=== PATIENT | female | born 1950 | race Caucasian/White ===

== ENCOUNTER → 2017-01-02 | Day surgery (SDC) | payer BC ==
[2016-12-26 09:03] VITALS: Ht 180.3 cm; Wt 102.3 kg
[~2017-01-02] VITALS: Ht 180.3 cm; Wt 102.3 kg
[~2017-01-02] MED LIST: LEVO100T7 PO; LIDOCAINE HCL 2% 2 ML VIAL (20MG/ML) ONE; MIDAZOLAM HCL 1 MG/ML 2ML VIAL ONE; ONDANSETRON INJ 2 MG/ML 2 ML VIAL ONE; PRM/45 PO; PROPOFOL IV EMULSION 10 MG/ML 20 ML VIAL IV ONE; SODIUM CHLORIDE 0.9% 500ML 500 ML IV ONE; TRIATAB3 PO
--- NOTE | 2017-01-02 08:51 | Endo History and Physical ---
History & Physical Date of Service: January 02, 2017. Chief Complaint: history of polyps Referring Physician: Dr. Pedro Reese History of Present Illness 66 yo CF who presents for colonoscopy secondary to history of colon polyps. Past Medical History Arthritis, Hypertension, Thyroid Disease Past Surgical History Hx Cardiac Surgery: No Hx Internal Defibrillator: No Hx Pacemaker: No Hx Abdominal Surgery: Yes (PARTIAL HYSTER WITH TUMOR REMOVAL, BSO, ) Hx of Implantable Prosthesis: No Hx Post-Op Nausea and Vomiting: No Hx Cancer Surgery: No Hx Thoracic Surgery: No Hx Orthopedic: Yes (RT TKA, RT ANKLE SURGERY) Hx Urinary Tract Surgery: No Family History Colon CA Social History Smoking Status: Never Smoker Hx Substance Use: No Hx Alcohol Use: No Allergies Coded Allergies: Adhesives (Verified Allergy, Mild, TAPE YRS AGO REDNESS ON SKIN, 12/26/16) NO KNOWN DRUG ALLERGIES (Verified Allergy, Unknown, NONE, 12/26/16) Current Medications Reported Home Medications Medications Dose Route/Sig Max Daily Dose Days Date Category Dose Instructions Premarin (Estrogens, Conjugated) 0.45 Mg Tab 0.45 Mg PO 3XWK 06/15/15 Reported MONDAYS/WEDNESDAYS/FRIDAYS Triamterene/Hctz 37.5-25MG (Triamterene/HCTZ) 1 Tab Tab 1 Tab PO QPM 06/15/15 Reported Levothyroxine Sodium 100 Mcg Tab 1 Tab PO QAM 06/15/15 Reported Vital Signs Weight (Kilograms): 102.27 Height (Feet): 5 Height (Inches): 11 Date Time Temp Pulse Resp B/P Pulse Ox O2 Delivery O2 Flow Rate FiO2 01/02/17 08:08 36.5 65 20 133/70 97 Room Air Physical Exam General Appearance: WD/WN, no apparent distress Respiratory/Chest: Auscultation: breath sounds normal Cardiovascular: Heart Auscultation: RRR Abdomen: Bowel Sounds: normal Inspection & Palpation: soft, non-distended, no tenderness, guarding & rebound Assessment and Plan Assessment: 66 yo CF who presents for colonoscopy secondary to history of colon polyps. Plan: Proceed with colonoscopy.
--- NOTE | 2017-01-02 09:25 | Discharge Instructions ---
Endoscopy Patient Instructions Date / Procedure(s) Performed January 02, 2017. Colonoscopy Allergy Information Coded Allergies: Adhesives (Verified Allergy, Mild, TAPE YRS AGO REDNESS ON SKIN, 12/26/16) NO KNOWN DRUG ALLERGIES (Verified Allergy, Unknown, NONE, 12/26/16) Discharge Date / Findings January 02, 2017. Internal hemorrhoids Medication Instructions OK to resume all medications today as prescribed Reported Home Medications Medications Dose Route/Sig Max Daily Dose Days Date Category Dose Instructions Premarin (Estrogens, Conjugated) 0.45 Mg Tab 0.45 Mg PO 3XWK 06/15/15 Reported MONDAYS/WEDNESDAYS/FRIDAYS Triamterene/Hctz 37.5-25MG (Triamterene/HCTZ) 1 Tab Tab 1 Tab PO QPM 06/15/15 Reported Levothyroxine Sodium 100 Mcg Tab 1 Tab PO QAM 06/15/15 Reported Provider Instructions Activity Restrictions - No exercising or heavy lifting for 24 hours. - Do not drink alcohol the day of the procedure. - Do not drive a car or operate machinery until the day after the procedure. - Do not make any important decisions or sign important papers in 24 hours after the procedure. Following Day: - Return to full activity which may include returning to work/school. Diet Start your diet with liquids and light foods (jello, soup, juice, toast). Then eat your usual diet if not nauseated. Treatment For Common After Affects For mild abdominal pain, bloating, or excessive gas: - Rest - Eat lightly - Lie on right side Follow-Up Information Follow-up with Dr. Pedro Reese as scheduled Anesthesia Information What You Should Know You have had a procedure that required some medicine to reduce anxiety and discomfort. This treatment is called moderate sedation. After receiving the treatment, you may be sleepy, but you will be able to breathe on your own. The effects of the treatment may last for several hours. Follow these instructions along with Activity/Diet recommendations noted above: * Do NOT do anything where dizziness or clumsiness would be dangerous. * Rest quietly at home today, then you can be up and about tomorrow. * Have a responsible person stay with you the rest of today. * You may have had an I.V. today. If so, you may take the dressing off later today. Recommendations Call your doctor if: * Trouble breathing * Continuous vomiting for more than 24 hours * Temperature above 101 degrees * Severe abdominal pain or bloating * Pain not relieved by pain medicine ordered * There is increased drainage or redness from any incision * A large amount of rectal bleeding greater than 2-3 tablespoons. (If you had a polyp/s removed or have hemorrhoids, a small amount of blood - from the rectum is to be expected.) * You have any unanswered questions or concerns. IN THE EVENT OF A SERIOUS EMERGENCY, GO TO THE NEAREST EMERGENCY ROOM Your discharge instructions were prepared by provider Antonio Jones. Patient Instructions Signature Page Tamia Fields Patient (or Guardian) Signature/Date: I have read and understand the instructions given to me by my caregivers. Caregiver/RN/Doctor Signature/Date: The above-named patient and/or guardian has received patient instructions on this date. + Original Patient Signature Page (only) stays with chart. Please make copy for patient.
--- NOTE | 2017-01-02 09:35 | GI REPORT ---
Procedure Date: 01/02/2017 8:34 AM Procedure: Colonoscopy Indications: High risk colon cancer surveillance: Personal history of colonic polyps Medicines: Monitored Anesthesia Care Complications: No immediate complications. Estimated Blood Loss: Estimated blood loss: none. Procedure: Pre-Anesthesia Assessment: - Prior to the procedure, a History and Physical was performed, and patient medications and allergies were reviewed. The patient's tolerance of previous anesthesia was also reviewed. The risks and benefits of the procedure and the sedation options and risks were discussed with the patient. All questions were answered, and informed consent was obtained. Prior Anticoagulants: The patient has taken no previous anticoagulant or antiplatelet agents. ASA Grade Assessment: II - A patient with mild systemic disease. After reviewing the risks and benefits, the patient was deemed in satisfactory condition to undergo the procedure. After I obtained informed consent, the scope was passed under direct vision. Throughout the procedure, the patient's blood pressure, pulse, and oxygen saturations were monitored continuously. The scope was introduced through the anus and advanced to the terminal ileum. The colonoscopy was performed without difficulty. The patient tolerated the procedure well. The quality of the bowel preparation was good. The terminal ileum, ileocecal valve, appendiceal orifice, and rectum were photographed. Findings: Non-bleeding internal hemorrhoids were found during retroflexion. The hemorrhoids were small. The exam was otherwise without abnormality. Impression: - Non-bleeding internal hemorrhoids. - The examination was otherwise normal. - No specimens collected. Recommendation: - Resume previous diet. - Continue present medications. - Repeat colonoscopy in 5 years for surveillance. - Return to primary care physician as previously scheduled. Antonio Jones, DO 01/02/2017 9:34:26 AM This report has been signed electronically. Note Initiated On: 01/02/2017 8:34 AM I attest to the content of the Intraoperative Record and orders documented therein, exceptions below
--- NOTE | 2017-01-02 09:45 | Anesthesiology Progress Note ---
Anesthesia Post Op Note Date & Time January 02, 2017 at 09:44 Vital Signs Pain Intensity: 0 Vital Signs Past 12 Hours Date Time Temp Pulse Resp B/P Pulse Ox O2 Delivery O2 Flow Rate FiO2 01/02/17 09:26 65 16 133/126 98 Room Air 01/02/17 08:08 36.5 65 20 133/70 97 Room Air Notes Mental Status: alert / awake / arousable, participated in evaluation Pt Amnestic to Procedure: Yes Nausea / Vomiting: adequately controlled Pain: adequately controlled Airway Patency, RR, SpO2: stable & adequate BP & HR: stable & adequate Hydration State: stable & adequate Anesthetic Complications: no major complications apparent
[2017-01-02 10:00] VITALS: BP 147/69; PULSE 69; O2SAT 97
== END | disposition home or self-care (01) ==
LOC: C.GI 07:37
PROVIDERS: ATTEND Internal Medicine
DX: Z12.11 Encounter for screening for malignant neoplasm of colon (principal); Z86.010 Personal history of colon polyps; K64.8 Other hemorrhoids

== ENCOUNTER → 2017-01-06 | Outpatient (CLI) | payer BC ==
[~2017-01-06] MED LIST changes: -LIDOCAINE HCL 2% 2 ML VIAL (20MG/ML) ONE; -MIDAZOLAM HCL 1 MG/ML 2ML VIAL ONE; -ONDANSETRON INJ 2 MG/ML 2 ML VIAL ONE; -PROPOFOL IV EMULSION 10 MG/ML 20 ML VIAL IV ONE; -SODIUM CHLORIDE 0.9% 500ML 500 ML IV ONE
--- NOTE | 2017-01-06 16:00 | DIAGNOSTIC IMAGING REPORT ---
ULTRASOUND LEFT LOWER EXTREMITY VENOUS CLINICAL HISTORY: Left leg pain and swelling. COMPARISON STUDY: No priors. TECHNIQUE: Real-time, grayscale, and color Doppler sonography of the deep veins of the left lower extremity was performed from the inguinal crease to the calf. Compression and augmentation were utilized. FINDINGS: There is no sonographic evidence of deep venous thrombosis identified in the left lower extremity. The common femoral, superficial femoral, and popliteal veins are patent and normally compressible. The greater saphenous vein and the profunda femoris vein at the junction with the common femoral vein are clear. The visualized calf veins are patent. A complex popliteal cyst measures 6.3 x 1.7 x 2.4 cm. IMPRESSION: 1. There is no sonographic evidence of deep venous thrombosis identified in the left lower extremity. 2. Complex bakers cyst. Electronically signed by: Babak Hoyt M.D. 01/06/2017 3:58 PM Dictated Date/Time: 01/06/2017 3:58 PM
== END | disposition home or self-care (01) ==
LOC: C.ULTR 15:33
PROVIDERS: ATTEND Obstetrics & Gynecology
DX: Z01.419 Encounter for gynecological examination (general) (routine) without abnormal findings (principal); M79.89 Other specified soft tissue disorders; M71.22 Synovial cyst of popliteal space [Baker], left knee

== ENCOUNTER → 2017-01-06 | Outpatient (CLI) | payer BC | END | disposition home or self-care (01) | LOC: C.PAPS 09:19 | PROVIDERS: ATTEND Obstetrics & Gynecology | DX: Z01.419 Encounter for gynecological examination (general) (routine) without abnormal findings (principal) ==

== ENCOUNTER → 2017-01-15 | Outpatient (CLI) | payer BC ==
[2017-01-15 12:14] LABS: BASO % 0.2 %; BASO ABS # 0.01 K/uL (0-0.2); COMPLETE YES; EOS % 3.2 %; HEMATOCRIT 39.4 % (37-47); IG% 0.2 %; LYMPH % 21.7 %; LYMPH ABS # 1.03 K/uL (1.2-3.4); MEAN CORPUSCULAR HGB CONC 32.2 g/dl (32-36); MONO % 10.5 %; NEUT % 64.2 %; PLATELET COUNT 207 K/uL (130-400); RED BLOOD COUNT 4.53 M/uL (4.2-5.4); WHITE BLOOD COUNT 4.75 K/uL (4.8-10.8)
[2017-01-15 12:46] LABS: ESTIMATED AVERAGE GLUCOSE 126 mg/dl; HA1C FLAG Normal (Normal)
[2017-01-15 12:52] LABS: THYROID STIMULATING HORMONE 0.773 uIu/ml (0.300-4.500)
== END | disposition home or self-care (01) ==
LOC: C.LABBFT 07:38
PROVIDERS: ATTEND Internal Medicine
DX: E03.9 Hypothyroidism, unspecified (principal); R73.03 Prediabetes; D72.819 Decreased white blood cell count, unspecified

== ENCOUNTER → 2017-03-19 | Outpatient (CLI) | payer BC ==
--- NOTE | 2017-03-19 14:03 | MAMMOGRAPHY REPORT ---
BILATERAL DIGITAL SCREENING MAMMOGRAM WITH CAD: 03/19/2017 CLINICAL HISTORY: Routine screening. TECHNIQUE: Current study was also evaluated with a Computer Aided Detection (CAD) system. Bilateral CC and MLO views were obtained. COMPARISON: Comparison is made to exams dated: 03/11/2016 mammogram, 03/08/2015 mammogram, 03/07/2014 ma mmogram, 03/03/2013 mammogram, 03/02/2012 mammogram, and 02/27/2011 mammogram - [facility] nter. BREAST COMPOSITION: There are scattered areas of fibroglandular density in both breasts. FINDINGS: No suspicious masses, calcifications, or areas of architectural distortion are noted in ei ther breast. There has been no significant interval change compared to prior exams. Bilateral benign -appearing calcifications are not significantly changed. Nodular asymmetry in the left upper outer q uadrant is stable dating back to at least the 2010 exam. IMPRESSION: ACR BI-RADS CATEGORY 2: BENIGN There is no mammographic evidence of malignancy. A 1 year screening mammogram is recommended. The pa tient will receive written notification of the results. Approximately 10% of breast cancers are not detected with mammography. A negative mammographic report should not delay biopsy if a clinically suggestive mass is present. Yarelis Nagel M.D. ah/:03/19/2017 07:40:38 Drug Safety Data Management Specialist: Lauren NIX(Nataliia)(M), [facility] letter sent: Normal 1/2 BI-RADS Code: ACR BI-RADS Category 2: Benign
== END | disposition home or self-care (01) ==
LOC: C.MAMM 07:04
PROVIDERS: ATTEND Obstetrics & Gynecology
DX: Z12.31 Encounter for screening mammogram for malignant neoplasm of breast (principal)

== ENCOUNTER → 2017-07-23 | Outpatient (CLI) | payer BC ==
[2017-07-23 13:13] LABS: BASO % 0.2 %; BASO ABS # 0.01 K/uL (0-0.2); COMPLETE YES; EOS % 2.8 %; HEMATOCRIT 39.2 % (37-47); IG% 0.2 %; LYMPH % 25.5 %; LYMPH ABS # 1.17 K/uL (1.2-3.4); MEAN CELL VOLUME 88.7 fL (80-100); MEAN CORPUSCULAR HEMOGLOBIN 28.7 pg (25-34); MEAN CORPUSCULAR HGB CONC 32.4 g/dl (32-36); MEAN PLATELET VOLUME 10.1 fL (7.4-10.4); MONO % 9.6 %; NEUT % 61.7 %; PLATELET COUNT 190 K/uL (130-400); RED BLOOD COUNT 4.42 M/uL (4.2-5.4); WHITE BLOOD COUNT 4.59 K/uL (4.8-10.8)
[2017-07-23 13:14] LABS: URINE APPEARANCE TURBID (CLEAR); URINE BILIRUBIN NEG (NEG); URINE COLOR YELLOW; URINE EPITHELIAL CELL AUTO >30 /lpf (0-5); URINE NITRITE NEG (NEG); URINE SPECIFIC GRAVITY 1.029 (1.000-1.030); UROBILINOGEN NEG (NEG); ZZUR CULT IF INDIC CLEAN CATCH NO
[2017-07-23 13:20] LABS: ALT/SGPT 17 U/L (12-78); BLOOD UREA NITROGEN 25 mg/dl (7-18); BUN/CREATININE RATIO 26.8 (10-20); CALCIUM 9.2 mg/dl (8.5-10.1); CARBON DIOXIDE 30 mmol/L (21-32); CHLORIDE 105 mmol/L (98-107); CHOLESTEROL 145 mg/dl (0-200); CREATININE 0.93 mg/dl (0.60-1.20); GLUCOSE 90 mg/dl (70-99); POTASSIUM 3.8 mmol/L (3.5-5.1); SODIUM 141 mmol/L (136-145); TRIGLYCERIDES 77 mg/dl (0-150); VERY LOW DENSITY LIPOPROT CALC 15 mg/dl
[2017-07-23 13:22] LABS: MANUAL MICROSCOPIC REQUIRED? NO; REVIEW REQ? NO
[2017-07-23 13:27] LABS: ESTIMATED AVERAGE GLUCOSE 126 mg/dl; HA1C FLAG Normal (Normal)
[2017-07-23 13:30] LABS: ALB/GLOB RATIO 0.9 (0.9-2); ALKALINE PHOSPHATASE 96 U/L (45-117); AST/SGOT 15 U/L (15-37); CHOLESTEROL/HDL RATIO 2.4; HDL CHOLESTEROL 61 mg/dl; LDL CHOLESTEROL CALCULATED 69 mg/dl
== END | disposition home or self-care (01) ==
LOC: C.LABBFT 07:35
PROVIDERS: ATTEND Internal Medicine
DX: Z13.6 Encounter for screening for cardiovascular disorders (principal); D72.819 Decreased white blood cell count, unspecified; E03.9 Hypothyroidism, unspecified; R73.03 Prediabetes

== ENCOUNTER → 2018-03-25 | Outpatient (CLI) | payer BC ==
--- NOTE | 2018-03-25 15:42 | MAMMOGRAPHY REPORT ---
BILATERAL DIGITAL SCREENING MAMMOGRAM TOMOSYNTHESIS WITH CAD: 03/25/2018 CLINICAL HISTORY: Routine screening. Patient has no complaints. TECHNIQUE: The study was acquired using full field digital technology and interpreted from soft copy. Breast tomosynthesis in addition to standard 2D mammography was performed. Current study was also ev aluated with a Computer Aided Detection (CAD) system. COMPARISON: Comparison is made to exams dated: 03/19/2017 mammogram, 03/11/2016 mammogram, 03/08/2015 ma mmogram, 03/02/2012 mammogram, 02/27/2011 mammogram, and 02/26/2010 mammogram - [facility] nter. BREAST COMPOSITION: There are scattered areas of fibroglandular density in both breasts. FINDINGS: No suspicious masses, calcifications, or areas of architectural distortion are noted in either breast . There has been no significant interval change compared to prior exams. IMPRESSION: ACR BI-RADS CATEGORY 1: NEGATIVE There is no mammographic evidence of malignancy. A 1 year screening mammogram is recommended.( 019) The patient will receive written notification of the results. Some breast cancers are not detected with mammography. A negative mammographic report should not karen y biopsy if a clinically suggestive mass is present. Yarelis Nagel M.D. ah/:03/25/2018 07:49:07 [employer] Worker [employer]posites: RT Nayeli(Nataliia)(M), [facility] letter sent: Normal 1/2 BI-RADS Code: ACR BI-RADS Category 1: Negative
== END | disposition home or self-care (01) ==
LOC: C.MAMM 07:30
PROVIDERS: ATTEND Obstetrics & Gynecology
DX: Z12.31 Encounter for screening mammogram for malignant neoplasm of breast (principal)

== ENCOUNTER 2019-05-25 06:13 | Inpatient (IN) ==
--- NOTE | 2019-05-05 10:36 | PAT Medication Instructions ---
Medication Instructions Date of Service May 05, 2019 Home Medications conjugated estrogens [Premarin] 0.45 mg PO 2XWK hydrocodone-acetaminophen 1 tab PO Q6H PRN levothyroxine 100 mcg PO QAM triamterene-hydrochlorothiazid 1 tab PO QPM Continue as directed conjugated estrogens [Premarin] 0.45 mg PO 2XWK Take morning of surgery With a small sip of water, OTHERWISE NOTHING TO EAT OR DRINK AFTER MIDNIGHT: hydrocodone-acetaminophen 1 tab PO Q6H PRN (okay to take up to 4 hours prior to surgery if needed) levothyroxine 100 mcg PO QAM Take evening before surgery hydrocodone-acetaminophen 1 tab PO Q6H PRN (if needed) triamterene-hydrochlorothiazid 1 tab PO QPM Other Notes If you have any questions please call us at [phone] or [phone] or [phone] or [phone]
--- NOTE | 2019-05-05 15:18 | Anesthesiology Consultation ---
Date of Service May 05, 2019 Assessment & Plan (1) Encounter for pre-operative examination: Chart Review Chart Review: Pending: Refer to Additional Notes / Consult section (pensing preop testing (labs, EKG, CXR)) and Patient seen in Pre Admission Testing Teaching & Discussion Pre-Anesthesia Teaching/Discussion Notes: Instructed NPO after midnight before surgery,except medications with 15 cc of water. Medication instructions prov ided according to the [facility] guidelines. History Surgery Operation Date: 05/25/19 09:50 Proposed Procedures p Left Total Hip Arthroplasty - Carlos A Gonsalves MD Height/Weight Height: 5 ft 10.5 in Weight: 105.233 kg (per verbal, significant hip pain and patient refuses standing weight at PAT visit) Allergies Allergy/AdvReac Type Severity Reaction Status Date / Time adhesive Allergy Mild Skin Verified 05/05/19 15:17 redness with tape "years ago" No Known Drug Allergies Allergy Unknown NONE Verified 04/28/19 09:32 Medications Home Medications Medication Instructions Recorded Confirmed Last Taken conjugated estrogens [Premarin] 0.45 mg PO 2XWK 04/28/19 04/28/19 Unknown hydrocodone-acetaminophen 1 tab PO Q6H PRN 04/28/19 04/28/19 Unknown levothyroxine 100 mcg PO QAM 04/28/19 04/28/19 Unknown triamterene-hydrochlorothiazid 1 tab PO QPM 04/28/19 04/28/19 Unknown Past Medical History Medical History Avascular necrosis Hypertension Obesity Osteoarthritis Exercise / Class Metabolic Activity III < 4 Walking/Shop/Light housework (walker PRN-- hip pain significantly worsened since 04/30 (no specific trauma/injury at that time)) Past Family History Family History Brother Family history of diabetes mellitus Sister Family history of diabetes mellitus Mother Family history of diabetes mellitus Past Surgical History Surgical History History of ankle surgery RT History of section History of colonoscopy History of esophagogastroduodenoscopy (EGD) History of partial hysterectomy History of right knee joint replacement History of wisdom tooth extraction Past Anesthesia History Other Patient: blood patch needed after remote c/s Grandfather (maternal): Stroke-like symptoms with anesthesia 30+ years ago (symptoms resolved, no further details). No personal similar issues. History of PONV No Hx of PONV and No Hx of Motion Sickness Social History Smoking Status: Never smoker Do You Dip or Chew Tobacco: No Hx Alcohol Use: Yes Alcohol type: hard liquor alcohol intake frequency: a few times a month Hx Substance Use: No substance use type: does not use Review of Systems Patient denies chest pain, shortness of breath, reflux, cough, wheezing, palpitations. Physical Exam Vital Signs VITALS BP 125/79 P 71 TEMP 97.8 SP02 97%RA RESP 18 PHYSICAL Full neck and c-spine range of motion. Full TMJ range of motion. TMD 3 finger breaths Mallampati Score 3 Dentition: intact, crowns "all over" Lungs: clear throughout to auscultation Cardiac: regular rate and rhythm, no murmurs noted Spine: normal Carotid arteries: negative bruit Extremities: no edema Testing Electrocardiogram Date: 06/16/18 Findings: + NSR @ (69)
--- NOTE | 2019-05-05 16:17 | XRay Report ---
XR chest Pre-admission PA/Lat CLINICAL HISTORY: 68 years-old Female presenting with preoperative evaluation. TECHNIQUE: PA and lateral views of the chest were obtained. COMPARISON: 06/15/2015. FINDINGS: Atherosclerosis of the aortic arch. Cardiac silhouette borderline enlarged. Lungs and pleural spaces clear. Degenerative changes of the thoracic spine. Upper abdomen normal. IMPRESSION: 1. Borderline cardiomegaly. No other convincing evidence of acute cardiopulmonary disease. Electronically signed by: Cayetano Mota M.D. 05/05/2019 4:16 PM
[2019-05-05 16:19] LABS: Basophils # (auto) 0.01 K/uL (0-0.2); Basophils % (auto) 0.2 %; Eosinophils # (auto) 0.12 K/uL (0-0.5); Eosinophils % (auto) 2.2 %; Hemoglobin 12.2 g/dL (12.0-16.0); Immature Granulocytes # (auto) 0.01 K/uL (0.00-0.02); Immature Granulocytes % (auto) 0.2 %; Lymphocytes # (auto) 1.54 K/uL (1.2-3.4); Lymphocytes % (auto) 27.7 %; Mean Corpuscular Hemoglobin 28.7 pg (25-34); Mean Corpuscular Volume 87.1 fL (80-100); Mean Platelet Volume 9.6 fL (7.4-10.4); Monocytes # (auto) 0.37 K/uL (0.11-0.59); Monocytes % (auto) 6.7 %; Platelet Count 224 K/uL (130-400); RDW Standard Deviation 41.6 fL (36.4-46.3); Red Blood Count 4.25 M/uL (4.2-5.4); White Blood Count 5.55 K/uL (4.8-10.8)
[2019-05-05 16:24] LABS: Appearance Urine Clear (Clear); Bilirubin Urine Negative (Negative); Blood Urine Negative (Negative); Color Urine Yellow; Glucose Urine UA Negative (Negative); Ketones Urine Trace (Negative); Leukocyte Esterase Urine Negative (Negative); Nitrite Urine Negative (Negative); Protein Urine Negative (Negative); Urobilinogen Urine Negative (Negative); pH Urine 5.5 (4.5-7.5)
[2019-05-05 16:31] LABS: BUN Creatinine Ratio 32.6 (10-20); Calcium 9.5 mg/dl (8.5-10.1); Creatinine Clr Calc Pharmacy 77.9 ml/min; Est GFR (African American) 76.1; Est GFR (Non-African American) 65.7; Potassium 3.8 mmol/L (3.5-5.1)
[2019-05-05 16:33] LABS: Partial Thromboplastin Ratio 0.9; Partial Thromboplastin Time 24.6 Seconds (21.0-31.0); Prothrombin Time 10.1 Seconds (9.0-12.0)
--- NOTE | 2019-05-10 16:10 | History and Physical Report ---
DATE OF ADMISSION: 05/25/2019 PATIENT OF: Dr. Gonsalves. CHIEF COMPLAINT: Left hip pain. HISTORY OF PRESENT ILLNESS: This 68-year-old white female presents with her , with complaints of longstanding history of left hip pain. It has been ongoing since last summer. She previously thought her symptoms were coming from her knee. She has had left knee pain since 11/2015. She was so convinced that her symptoms were coming from her knee that she underwent knee arthroscopy with partial meniscectomy at another facility. Leg pain and hip pain did not improve. She states in fact it has become worse. She is now having difficulty ambulating. She is currently sitting in a wheelchair. No numbness or tingling. She has tried activity modification as well as oral pain medication and intra-articular cortisone injection without lasting improvement. Preoperative imaging has been obtained. She elects to proceed with left total hip arthroplasty in hopes of alleviating her discomfort. Pain is worse with weightbearing. It is affecting her ADLs. PAST MEDICAL HISTORY: Significant for hypertension, hypothyroidism, and obesity. PAST SURGICAL HISTORY: Partial hysterectomy in 1974, complete hysterectomy in 1991, foot and ankle surgery 2006, unknown date, right knee replacement in 2014, left knee arthroscopy in 07/2018. SOCIAL HISTORY: The patient is . Retired from [employer]. 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 No tobacco use, occasional ETOH use. FAMILY HISTORY: Significant for type 2 diabetes and history of stroke. ALLERGIES: NKDA. CURRENT MEDICATIONS: Vicodin 5/325 mg p.o. q. 6 hours p.r.n., Premarin 0.45 mg p.o. Thursday, Thursday and Thursday, HCTZ/triamterene 25 mg/37.5 mg p.o. daily, levothyroxine 100 mcg p.o. daily. REVIEW OF SYSTEMS: A total of 10 systems are reviewed and are significant only for above stated conditions. PHYSICAL EXAMINATION: GENERAL: Well-developed, well-nourished elderly white female in no acute distress. Sitting on a wheelchair. Alert and oriented. Morbidly obese. VITAL SIGNS: Temperature 36.9, BP 140/90, heart rate 85, O2 sat 97% on room air. Pain is 10/10. SKIN: Warm and dry with good turgor. No rashes or lesions. No ecchymosis or erythema. HEENT: Normocephalic, atraumatic. Eyes PERRLA, EOMI. Nares patent bilaterally without turbinate enlargement. Oropharynx without erythema or exudate. No lesions noted. Uvula midline. Oral mucosa moist. Fair dentition. Fillings and caps are noted. HEART: RRR. No MGR. LUNGS: Clear to auscultation bilaterally. No crackles, rhonchi or wheezing. Good air movement. ABDOMEN: Obese. Bowel sounds present x4, soft, nontender. No organomegaly. No masses. MUSCULOSKELETAL: Left hip has no obvious asymmetry or deformity. She has limited range of motion secondary to pain. She is quite uncomfortable. There is focal discomfort with palpation globally around the thigh. It also extends to the IT band and greater trochanter. Very limited hip motion. Flexion only to 90 degrees. Any attempted abduction or adduction of the hip create significant pain. External rotation of only around 5 degrees with internal rotation only to neutral secondary to pain. Minimal pain with palpation over her medial knee and medial joint space. No pain with palpation laterally. The patient does not ambulate at today's visit secondary to pain. NEUROLOGIC: Cranial nerves II through XII are intact. Gross sensation is intact across the lower extremities by soft touch. Peripheral pulses are 2+. DATA: Radiographic imaging previously obtained shows advanced DJD of the femoral head with flattening suggestive of AVN. Periarticular osteophytes, and subchondral sclerosis are also evident. IMPRESSION: Left hip end-stage degenerative joint disease with avascular necrosis. PLAN: Postoperative prescriptions for Percocet and Coumadin will be provided at discharge from the hospital. Anticipate discharge to home with home health services. Her PCP currently administers narcotic prescriptions. We will take over prescribing once her surgery is completed. Preoperative lab work, EKG, and chest x-ray have been ordered. Medical clearance has been requested from her PCP, Dr. Reese. She already has access to a walker and cane. Informed written consent will be obtained in the morning of surgery to proceed with left total hip arthroplasty. [facility]
[~2019-05-25 06:13] MED LIST changes: +CEFAZOLIN 2000MG 2,000 MG/15 ML SYR IV SCH; -LEVO100T7 PO; +LR 500ML BOLUS IV SCH; +LR 60ML/HR IV SCH; -PRM/45 PO; +ROPIVACAINE 0.5% HCL/PF 150 MG, BUPIVACAINE 0.5% MPF 30 ML, EPINEPHrine 0.15 MG, Ketoro... INFIL SCH; +TRANEXAMIC ACID 1,000 MG **IV Pre-op IV SCH; -TRIATAB3 PO
[2019-05-25] MEDS ORDERED: BUPIVACAINE 0.5 % 5 MG/1 ML PF 10ML VIAL ONE (06:38)
--- NOTE | 2019-05-25 06:38 | History & Physical Bridge Note ---
Date of Service May 25, 2019 History & Physical Bridge Note I have examined the patient, reviewed the History & Physical and in the interval since the performance of the History & Physical I have noted the following changes of clinical significance: consent obtained.no changes noted
[2019-05-25] MEDS ORDERED: MIDAZOLAM HCL 1 MG/ML 2ML VIAL ONE (08:12)
[2019-05-25] MEDS ORDERED: PROPOFOL IV EMULSION 10 MG/ML 20 ML VIAL IV ONE (08:12)
[2019-05-25] MEDS ORDERED: LIDOCAINE HCL 2% 2 ML VIAL/AMP(20MG/ML) INFIL ONE (08:12)
[2019-05-25] MEDS ORDERED: fentaNYL citrate 100 MCG/2 ML VIAL ONE (08:35)
[2019-05-25] MEDS ORDERED: ATROPINE SULFATE 0.1 MG/ML 10ML SYR IV PRN (08:38)
[2019-05-25] MEDS ORDERED: ePHEDrine sulfate 50 MG/ML AMP IV PRN (08:38)
[2019-05-25] MEDS ORDERED: ORTHO JOINT ANESTHETIC ONE (09:16)
[2019-05-25] MEDS ORDERED: CEFAZOLIN 250 MG/ML 1 GM VIAL ONE (09:47)
[2019-05-25] MEDS ORDERED: CEFAZOLIN 1000MG 1,000 MG/7.5 ML SYR IV ONE (10:15)
--- NOTE | 2019-05-25 11:08 | Post Operative Brief Note ---
Immediate Post Op Note v1 Date of Surgery May 25, 2019 Pre & Post Diagnosis Operation Date: 05/25/19 09:00 Pre-Op Diagnosis: Left Hip-- End-Stage Degnerative Joint Disease and Avascular Necrosis Post-Op Diagnosis: Left Hip-- End-Stage Degnerative Joint Disease and Avascular Necrosis I identified the patient and participated in the time-out.: Yes Procedure Operation Date: 05/25/19 09:00 Actual Procedures p Left Total Hip Arthroplasty--Uncemented(Left) - Carlos A Gonsalves MD Surgeon Carlos A Gonsalves MD Scrap Breaker trixie/jodi Estimated Blood Loss 100 Findings Consistent with Post-Op Diagnosis
--- NOTE | 2019-05-25 11:19 | Operative Report ---
Post Operative Report Pre & Post Diagnosis Operation Date: 05/25/19 09:00 Pre-Op Diagnosis: Left Hip-- End-Stage Degnerative Joint Disease and Avascular Necrosis Post-Op Diagnosis: Left Hip-- End-Stage Degnerative Joint Disease and Avascular Necrosis I identified the patient and participated in the time-out.: Yes Procedure Operation Date: 05/25/19 09:00 Actual Procedures p Left Total Hip Arthroplasty--Uncemented(Left) - Carlos A Gonsalves MD Surgeon TRINY Gonsalves MD [employer] trixie/jodi Estimated Blood Loss 100 Findings Consistent with Post-Op Diagnosis Specimens see operative report Drains none Complications none Disposition Accompanied Patient To Recovery: Yes Disposition: Recovery Room Indications This 68-year-old white female presented to the office with complaints of intractable left hip pain. She had tried conservative care measures without improvement. She elected to proceed with surgical intervention after being educated about potential risks and outcomes. Preoperative imaging was obtained. Description of Procedure Patient was administered a spinal anesthetic and then taken to the operating room where she was given sedation. She was prepped and draped in the usual sterile fashion. Please see Dr. Gonsalves's operative report for specifics of the procedure. I was present for the entire case from initial patient positioning through final wound closure. Assistance was provided in tissue retraction, hemostasis, trial implant placement, final implant placement, and final wound closure. Patient was taken to the recovery room in satisfactory condition. I attest to the content of the Intraoperative Record and any orders documented therein. Any exceptions are noted below.
--- NOTE | 2019-05-25 11:23 | Operative Report ---
Post Operative Report Pre & Post Diagnosis Operation Date: 05/25/19 09:00 Pre-Op Diagnosis: Left Hip-- End-Stage Degnerative Joint Disease and Avascular Necrosis Post-Op Diagnosis: Left Hip-- End-Stage Degnerative Joint Disease and Avascular Necrosis I identified the patient and participated in the time-out.: Yes Procedure Operation Date: 05/25/19 09:00 Actual Procedures p Left Total Hip Arthroplasty--Uncemented(Left) - Carlos A Gonsalves MD Surgeon Carlos A Gonsalves MD Fire Code Inspector [email or web address]/[email or web address] Estimated Blood Loss 100 Findings Consistent with Post-Op Diagnosis Specimens as per procedure notes Complications none Disposition Accompanied Patient To Recovery: Yes Disposition: Recovery Room Description of Procedure Lateral decubitus position, standard prep and drape, timeout Left Total Hip Arthroplasty--Uncemented Please see Dr Gonsalves's op notes for specific details I was present throughout the case, assisted for wound closure, abductor pillow application and transferred the patient to PACU in stable condition I attest to the content of the Intraoperative Record and any orders documented therein. Any exceptions are noted below.
--- NOTE | 2019-05-25 11:31 | XRay Report ---
AP PELVIS AND LEFT HIP 2 VIEWS CLINICAL HISTORY: Arthritis. Left hip arthroplasty COMPARISON: 03/07/2019 DISCUSSION: There are postsurgical changes of a total left hip arthroplasty. The acetabular and femor al components appear well seated. There is no dislocation. There are overlying skin luis. There is air within the soft tissues consistent with history of recent surgery. IMPRESSION: Postsurgical changes of a total left hip arthroplasty. Electronically signed by: Maynor Winters M.D. 05/25/2019 11:30 AM
--- NOTE | 2019-05-25 11:38 | Operative Report ---
DATE OF OPERATION: 05/25/2019 SURGEON: Carlos A Gonsalves MD. IRRIGATION WORKER: Dr. Hubbard. SECOND IRRIGATION WORKER: Les Jordan PA-C. PREOPERATIVE DIAGNOSES: Avascular necrosis and osteoarthritis, left hip, severe. POSTOPERATIVE DIAGNOSES: Avascular necrosis and osteoarthritis, left hip, severe. OPERATION PERFORMED: Noncemented left total hip replacement. PERIOPERATIVE SITUATION: Medically cleared female with intractable hip pain who has severe collapse of her head and degenerative disease and loose body. At this point, wants to proceed with surgical treatment. She understands the risks and consequences. She is a large woman. DESCRIPTION OF PROCEDURE: The patient was appropriately identified, site verified, consent verified. Antibiotics confirmed as being given. The left lower extremity was prepped and draped in usual routine fashion. A generous posterior approach to the hip was made based on the patient's size. Sharp dissection carried to skin and blunt dissection down to fascia. This was then incised under direct vision. Two Charnley retractors were required. Care taken to protect the sciatic nerve. Short external rotators were identified, released. The capsule T'd and released and then the hip dislocated. The femoral head resected. There was a huge deformity to the femoral head with a large loose body in the joint and a large labral tear. Everything was debrided. Once the head was resected, excellent acetabular exposure was obtained. The labrum remaining was removed and serial reaming carried up to a 52 and a 52 cup impacted into appropriate anteversion and inclination. Some anterior osteophytes were then removed. A 6.5 x 25 screw was placed and a trial liner seated. Femur was then flexed and internally rotated. The proximal femur prepared with a box printing machine operator, canal finder, lateralizing rasp and serial broaching up to a size 4 with high offset Tri-Lock trial was placed with 8.5 head to balance the leg length. The hip was stable in all planes. The hip was then dislocated. All trial remaining elements were removed. The wound irrigated with Betadine, Pulsavac. Hole eliminator seated, permanent liner seated, permanent head and stem seated. The hip reduced. It was stable in all planes. The leg lengths were good and it was closed in serial layers using #2 Vicryl for the deep fascia, 2-0 Vicryl for the subcutaneous fascia and stainless steel clips for skin. Appropriate dressing applied. She will have a Prevena placed tomorrow based on size. ESTIMATED BLOOD LOSS: 100 mL. PATHOLOGY: Pending on bone. DVT PROPHYLAXIS: With Coumadin. CRYSTALLOID: Per Anesthesia. SUMMARY OF IMPLANTS: Size 52 acetabular shell sector cup hole eliminator, cancellous screw 6.5 x 25, acetabular liner 36 x 52 neutral, femoral stem 4 high offset Tri-Lock and femoral head was a 36+8.5 ceramic head. I attest to the content of the Intraoperative Record and any orders documented therein. Any exceptions are noted below. MTDD
--- NOTE | 2019-05-25 11:58 | Progress Note ---
DATE: 05/25/2019 SUBJECTIVE: Status post left total hip replacement. At this point in time, the patient is doing well, has no major issues. She denies any chest pain, shortness of breath, fever, chills, nausea, vomiting or headache. She is awake and alert. Vital signs are stable. She is afebrile. Neurovascular check femoral sciatic nerve is normal. The spinal is wearing off. Dressing clean, dry and intact. Postop x-rays look excellent. ASSESSMENT: Doing well. Continue with care pathway. Home tomorrow if she does well overnight.
--- NOTE | 2019-05-25 12:02 | Discharge Summary ---
DATE OF ADMISSION: 05/25/2019 DATE OF DISCHARGE: 05/26/2019 CHIEF COMPLAINT: Left hip pain. HISTORY OF PRESENT ILLNESS: The patient underwent elective left total hip replacement. Hospital course has been uneventful. At this point in time, she is quite comfortable. Her spinal is wearing off. Her femoral sciatic nerve activity is approaching normality. Postop x-rays look excellent. PAST MEDICAL HISTORY: Remarkable for hypertension, hypothyroidism, and obesity. PAST SURGICAL HISTORY: Remarkable for hysterectomy, foot and ankle surgery, C-sections, right knee replacement, left knee arthroscopy. SOCIAL HISTORY: Reveals that she is , retired from [employer]. 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 No tobacco. Social alcohol use. FAMILY HISTORY: Remarkable for type 2 diabetes, and history of CVA. ALLERGIES: None. PREADMISSION MEDICATIONS: Include Vicodin, Premarin, hydrochlorothiazide, triamterene and levothyroxine. She will be discharged on Coumadin, keep INR 1.8-2.2 and continue her pain medications. Hopefully, wean off as quickly as her hip pain is much less. REVIEW OF SYSTEMS: Noncontributory. ASSESSMENT: Overall doing well status post left total hip replacement. Plan is to discharge to home tomorrow with services. Have case management evaluate. Follow up in the office for 2 weeks. Prevena to be placed on the wound based on body size.
[2019-05-25] MEDS ORDERED: METOCLOPRAMIDE HCL INJ 5 MG/ML 2 ML VIAL IV PRN (12:35)
[2019-05-25] MEDS ORDERED: HYDROmorphone INJ 0.5 MG/0.5 ML SYR IV PRN (12:35)
[2019-05-25] MEDS ORDERED: NALOXONE HCL 0.4 MG/1 ML VIAL/CARP IV PRN (12:35)
[2019-05-25] MEDS ORDERED: bisacodyL 10 MG SUPP PR PRN (12:35)
[2019-05-25] MEDS ORDERED: ONDANSETRON INJ 2 MG/ML 2 ML VIAL IV PRN (12:35)
[2019-05-25] MEDS ORDERED: HYOSCYAMINE SULFATE 0.125 MG TAB SL PRN (12:35)
[2019-05-25] MEDS ORDERED: MAGNESIUM HYDROXIDE SUSP 30 ML UDC PO PRN (12:35)
[2019-05-25] MEDS ORDERED: ALUMINUM/MAGNESIUM SUSP 30 ML UDC PO PRN (12:35)
[2019-05-25] MEDS ORDERED: SODIUM CHLORIDE 0.9% 1000ML 1,000 ML IV SCH (12:35)
[2019-05-25] MEDS ORDERED: DiphenhydrAMINE HCL 50 MG/ML VIAL IV PRN (12:35)
[2019-05-25] MEDS: KETOROLAC TROMETHAMINE 15 MG/ML VIAL IV SCH ×2 (13:02→18:53)
[2019-05-25] MEDS: ORTHO WARFARIN NOMOGRAM SCH (13:36)
--- NOTE | 2019-05-25 13:39 | Anesthesiology Progress Note ---
Date of Service May 25, 2019 Anesthesia Post Procedure Vital Signs Vital Signs: Temp Pulse Pulse Resp BP Pulse Ox 05/25/19 13:17 36.4 C L 76 15 130/57 L 97 05/25/19 12:45 36.5 C 71 15 142/76 H 97 05/25/19 12:20 36.7 C 63 15 144/79 H 96 05/25/19 11:55 36.9 C 62 15 126/67 98 05/25/19 11:45 58 L 13 92/62 L 98 05/25/19 11:35 36.2 C L 59 L 11 L 107/75 95 05/25/19 11:25 36.2 C L 63 13 105/66 95 05/25/19 11:18 36.2 C L 62 16 110/71 99 05/25/19 06:53 36.7 C 76 20 140/84 95 Pain Intensity Left Hip: Pain Intensity: 4 Right Shoulder: Pain Intensity: 4 Transfer of Care Handoff Completed per policy Notes Mental Status: alert / awake / arousable and participated in evaluation Patient Amnestic to Procedure: Yes Nausea / Vomiting: adequately controlled Pain: adequately controlled Airway Patency, RR, SpO2: stable & adequate BP & HR: stable & adequate Hydration State: stable & adequate Neuraxial Anesthesia: was administered and sensory block is resolving Anesthetic Complications: no major complications apparent
[2019-05-25] MEDS: ACETAMINOPHEN 500 MG TAB PO SCH ×2 (13:45→20:44)
[2019-05-25] MEDS: OXYCODONE HCL IR 5 MG TAB (IMMEDIATE RELEASE) PO PRN ×3 (13:47→21:41)
[2019-05-25] MEDS ORDERED: WARFARIN SOD 5 MG TAB PO SCH (16:00)
[2019-05-25] MEDS ORDERED: TRANEXAMIC ACID 1,000 MG in 0.9 % SODIUM CHLORIDE 100 ML IV SCH (17:22)
[2019-05-25] MEDS: FERROUS GLUCONATE 324 MG TAB PO SCH (17:52)
[2019-05-25] MEDS: CEFAZOLIN 2000MG 2,000 MG/15 ML SYR IV SCH (17:52)
[2019-05-25] MEDS: ASCORBIC ACID 500 MG TAB PO SCH (17:52)
[2019-05-25] MEDS: DOCUSATE SODIUM 100 MG CAP PO SCH (20:44)
[2019-05-25] MEDS ORDERED: TRIAMTERENE/HCTZ 37.5/25MG TAB PO SCH (21:00)
[2019-05-25] MEDS ORDERED: SENNA 8.6 MG TAB PO SCH (21:00)
[2019-05-26] MEDS: CEFAZOLIN 2000MG 2,000 MG/15 ML SYR IV SCH (01:31)
[2019-05-26] MEDS: KETOROLAC TROMETHAMINE 15 MG/ML VIAL IV SCH ×2 (01:31→06:33)
[2019-05-26 05:29] LABS: Eosinophils # (auto) 0.02 K/uL (0-0.5); Eosinophils % (auto) 0.3 %; Hematocrit (blood only) 33.9 % (37-47); Hemoglobin 11.7 g/dL (12.0-16.0); Immature Granulocytes # (auto) 0.02 K/uL (0.00-0.02); Immature Granulocytes % (auto) 0.3 %; Lymphocytes # (auto) 1.06 K/uL (1.2-3.4); Lymphocytes % (auto) 13.4 %; Mean Corpuscular Hemoglobin 29.3 pg (25-34); Mean Corpuscular Hgb Conc 34.5 g/dL (32-36); Mean Platelet Volume 9.3 fL (7.4-10.4); Monocytes # (auto) 0.66 K/uL (0.11-0.59); Monocytes % (auto) 8.3 %; Neutrophils # (auto) 6.16 K/uL (1.4-6.5); Neutrophils % (auto) 77.7 %; Platelet Count 181 K/uL (130-400); RDW Coefficient of Variation 12.4 % (11.5-14.5); RDW Standard Deviation 38.7 fL (36.4-46.3); Red Blood Count 3.99 M/uL (4.2-5.4); White Blood Count 7.92 K/uL (4.8-10.8)
[2019-05-26] MEDS: ACETAMINOPHEN 500 MG TAB PO SCH ×2 (05:34→13:25)
[2019-05-26 05:40] LABS: Prothrombin Time 10.6 Seconds (9.0-12.0)
[2019-05-26 06:01] LABS: BUN Creatinine Ratio 23.3 (10-20); Calcium 8.9 mg/dl (8.5-10.1); Creatinine Clr Calc Pharmacy 67.9 ml/min; Est GFR (African American) 62.3; Est GFR (Non-African American) 53.8; Potassium 3.6 mmol/L (3.5-5.1)
[2019-05-26] MEDS ORDERED: LEVOTHYROXINE SODIUM 100 MCG TABLET PO SCH (06:30)
--- NOTE | 2019-05-26 07:21 | Progress Note ---
DATE: 05/26/2019 SUBJECTIVE: Postop day #1 status post left total hip replacement for avascular necrosis and loose fragments. At this point in time, the patient's pain is manageable. She continues to have knee pain which she has had before. She notes she has a significant degenerative disease. She has some thigh weakness based on chronic back issues, hip pain and knee arthritis. She gets around with a walker just fine. She denies chest pain, shortness of breath, fever, chills, nausea, vomiting or headache. OBJECTIVE: Vital signs are stable. She is afebrile. INR is 1.0. Hematocrit is stable at 33. Wound dressing clean, dry and intact. Hip range of motion, supple, pain free. Neurovascular check distally, sciatic nerve is normal. Quad tone is poor. ASSESSMENT AND PLAN: Overall, doing well. Calves nontender. Discharge to home on Coumadin 4 mg. Check INR on Thursday. Prevena to be placed today. Will have that removed roughly a week after that is placed. Alida roughly 17 days or so after surgery due to the size of the wound based on her overall level of adipose tissue. Overall, doing well. Discharge to home today. See comments noted above. Coumadin before leaving.
[2019-05-26] MEDS ORDERED: dexAMETHasone 10 MG in SYRINGE 0 ML IV SCH (08:00)
--- NOTE | 2019-05-26 08:31 | Anesthesiology Progress Note ---
Date of Service May 26, 2019 Anesthesia Post Procedure Vital Signs Vital Signs: Temp Pulse Pulse Resp BP Pulse Ox 05/26/19 07:37 36.5 C 79 16 112/68 96 05/26/19 03:20 36.6 C 79 16 132/72 95 05/25/19 23:24 36.5 C 90 16 121/72 96 05/25/19 20:15 36.5 C 88 16 138/75 97 05/25/19 15:22 36.8 C 86 16 156/76 H 94 05/25/19 14:15 36.6 C 82 18 163/75 H 97 05/25/19 13:17 36.4 C L 76 15 130/57 L 97 05/25/19 12:45 36.5 C 71 15 142/76 H 97 05/25/19 12:20 36.7 C 63 15 144/79 H 96 05/25/19 11:55 36.9 C 62 15 126/67 98 05/25/19 11:45 58 L 13 92/62 L 98 05/25/19 11:35 36.2 C L 59 L 11 L 107/75 95 05/25/19 11:25 36.2 C L 63 13 105/66 95 05/25/19 11:18 36.2 C L 62 16 110/71 99 Pain Intensity Left Hip: Pain Intensity: 8 Right Shoulder: Pain Intensity: 4 Notes Mental Status: alert / awake / arousable and participated in evaluation Patient Amnestic to Procedure: Yes Nausea / Vomiting: adequately controlled Pain: adequately controlled Airway Patency, RR, SpO2: stable & adequate BP & HR: stable & adequate Hydration State: stable & adequate Neuraxial Anesthesia: was administered and sensory block resolved Anesthetic Complications: no major complications apparent and Pt Satisfied with anesthetic care
[2019-05-26] MEDS: FERROUS GLUCONATE 324 MG TAB PO SCH (08:38)
[2019-05-26] MEDS: ASCORBIC ACID 500 MG TAB PO SCH (08:39)
[2019-05-26] MEDS: DOCUSATE SODIUM 100 MG CAP PO SCH (08:39)
[2019-05-26] MEDS: OXYCODONE HCL IR 5 MG TAB (IMMEDIATE RELEASE) PO PRN ×2 (08:39→13:27)
[2019-05-26] MEDS ORDERED: MULTIVITAMIN TAB PO SCH (09:00)
[2019-05-26] MEDS ORDERED: WARFARIN SOD 5 MG TAB PO ONE (13:00)
[2019-05-26] MEDS: ORTHO WARFARIN NOMOGRAM SCH (13:27)
== END 2019-05-26 14:38 | disposition home health service (06) | DRG 470 ==
LOC: ASU 06:13 → 3E 11:29

== ENCOUNTER 2021-01-02 05:22 | Observation (INO) ==
--- NOTE | 2020-12-13 13:49 | PAT Medication Instructions ---
Medication Instructions Date of Service December 13, 2020 Home Medications Medication Instructions Recorded hyoscyamine sulfate 0.125 mg 0.125 mg SL ONCE PRN #30 tab 01/30/20 sublingual tablet levothyroxine 100 mcg tablet 100 mcg PO QAM #90 tab 02/28/20 triamcinolone acetonide 0.1 % 1 applic DENTAL BID 10 Days #5 g 07/02/20 dental paste hydrocodone 5 mg-acetaminophen 325 1 tab PO Q6H PRN #60 tab 08/21/20 mg tablet hyoscyamine sulfate 0.125 mg sublingual tablet 0.125 mg SL ONCE PRN levothyroxine 100 mcg tablet 100 mcg PO QAM triamcinolone acetonide 0.1 % dental paste 1 applic DENTAL BID aspirin 81 mg chewable tablet 81 mg PO HS hydrocodone 5 mg-acetaminophen 325 mg tablet 1 tab PO Q6H PRN Vitamin C 1 tab PO QPM Vitamin D 1 tab PO QPM pravastatin 20 mg PO HS triamterene-hydrochlorothiazid 1 tab PO HS vitamin B complex 1 tab PO QPM DO NOT take the morning of surgery hyoscyamine sulfate 0.125 mg sublingual tablet 0.125 mg SL ONCE PRN triamcinolone acetonide 0.1 % dental paste 1 applic DENTAL BID Take morning of surgery With a small sip of water, OTHERWISE NOTHING TO EAT OR DRINK AFTER MIDNIGHT: levothyroxine 100 mcg tablet 100 mcg PO QAM hydrocodone 5 mg-acetaminophen 325 mg tablet 1 tab PO Q6H PRN (okay to take up to 4 hours prior to surgery if needed) Take evening before surgery hyoscyamine sulfate 0.125 mg sublingual tablet 0.125 mg SL ONCE PRN (if needed) triamcinolone acetonide 0.1 % dental paste 1 applic DENTAL BID aspirin 81 mg chewable tablet 81 mg PO HS hydrocodone 5 mg-acetaminophen 325 mg tablet 1 tab PO Q6H PRN (if needed) Vitamin C 1 tab PO QPM Vitamin D 1 tab PO QPM pravastatin 20 mg PO HS triamterene-hydrochlorothiazid 1 tab PO HS vitamin B complex 1 tab PO QPM Other Notes If you have any questions please call us at [phone] or [phone] or [phone] or [phone]
--- NOTE | 2020-12-17 11:27 | Anesthesiology Consultation ---
Date of Service December 17, 2020 Assessment & Plan (1) Encounter for pre-operative examination: COVID Status: As of 12/17 assessment, patient denies travel to endemic area, known exposure/sick contacts, or symptoms of COVID19. Patient instructed that they and their household members must follow strict social distancing guidelines, wear a mask in public and avoid travel/events/gatherings for 14 days prior to surgery. Preoperative COVID19 testing to be completed prior to surgery per surgeon's arrangements (pt reports to be done 12/31). Patient made aware to self-isolate as much as possible between COVID testing and surgery. Pt is fully vaccinated. Chart Review Chart Review: Acceptable Risk for Surgery (pending pcp clearance 12/19) and Patient seen in Pre Admission Testing Teaching & Discussion Instructed NPO after midnight before surgery, except medications with 15 cc of water. Medication instructions provided according to the PAT guidelines. History Surgery Operation Date: 01/02/21 07:15 Proposed Procedures p Right Total Hip Arthroplasty - Carlos A Gonsalves MD Height/Weight Height: 5 ft 10 in Weight: 115.6 kg Allergies Allergy/AdvReac Type Severity Reaction Status Date / Time adhesive Allergy Mild Skin Verified 12/07/20 13:05 redness with tape "years ago" No Known Drug Allergies Allergy Unknown NONE Verified 12/07/20 13:05 Medications Home Medications Medication Instructions Recorded Confirmed Last Taken hyoscyamine sulfate 0.125 mg 0.125 mg SL ONCE PRN #30 tab 01/30/20 12/07/20 Unknown sublingual tablet levothyroxine 100 mcg tablet 100 mcg PO QAM #90 tab 02/28/20 12/07/20 Unknown triamcinolone acetonide 0.1 % 1 applic DENTAL BID 10 Days #5 g 07/02/20 12/07/20 Unknown dental paste aspirin 81 mg chewable tablet 81 mg PO HS 07/04/20 12/07/20 Unknown hydrocodone 5 mg-acetaminophen 325 1 tab PO Q6H PRN #60 tab 08/21/20 12/07/20 Unknown mg tablet Vitamin C 1 tab PO QPM 12/07/20 12/07/20 Unknown Vitamin D 1 tab PO QPM 12/07/20 12/07/20 Unknown pravastatin 20 mg PO HS 12/07/20 12/07/20 Unknown triamterene-hydrochlorothiazid 1 tab PO HS 12/07/20 12/07/20 Unknown vitamin B complex 1 tab PO QPM 12/07/20 12/07/20 Unknown Past Medical History Medical History Acute sinusitis Adenomatous polyp of colon Asymptomatic postmenopausal status Avascular necrosis HIPS Constipation Generalized osteoarthritis Hyperlipidemia Hypertension Hypothyroidism Internal hemorrhoids Knee pain, left Laryngopharyngeal reflux HX-UNDER CONTROL Leukopenia hx Nontoxic multinodular goiter Obesity Osteoarthritis Pain in joint involving left ankle and foot Palpitations PT DENIES Pre-diabetes Trochanteric bursitis Exercise / Class Metabolic Activity III < 4 Walking/Shop/Light housework (Not able to be active due to arthritis, no CP or SOB with ambulation, using cane) Past Family History Family History Brother Family history of diabetes mellitus Sister Family history of diabetes mellitus Mother Family history of diabetes mellitus Grandmother (Maternal) Bladder cancer Grandmother (Paternal) Breast cancer Grandfather (Maternal) Colorectal cancer Other No family history of allergies No family history of bleeding disorder Denies family history of Ovarian cancer Hearing loss Past Surgical History Surgical History History of ankle surgery (~08/05/07) Right Apulette's resection. Debridement Achilles tendon. Calcaneal exostectomy History of section History of colonoscopy History of esophagogastroduodenoscopy (EGD) History of right knee joint replacement History of total hip arthroplasty LEFT History of wisdom tooth extraction Hx of total hysterectomy (~1996) With BSO Hx of tubal ligation Past Anesthesia History No Hx of Anesthesia Complications and No Family Hx of Anesthesia Complications (other than remote hx of very elderly grandfather having vague issue) History of PONV No Hx of Motion Sickness and History of PONV (single episode 20-30yrs ago) Social History Smoking Status: Never smoker Do You Dip or Chew Tobacco: No Hx Alcohol Use: Yes Alcohol type: hard liquor alcohol intake frequency: a few times a month Hx Substance Use: No substance use type: does not use Review of Systems Pt denies any recent chest pain, shortness of breath, palpitations, cough, fever, URI, or uncontrolled acid reflux. Physical Exam Vital Signs BP: 121/75 P: 74bpm SPO2: 96% RA T: 98.2 F R: 16 Constitutional + obese ENMT Mouth: + dental restorations (few crowns); no chipped teeth and no loose teeth Thyromental Distance: > or= 3.5 Finger Breadths Mallampati Class: III Neck neck extension not limited Respiratory normal respiratory effort, lungs clear to auscultation Cardiovascular RRR, no murmur, no edema Testing Laboratory Results 12/17/20 11:42 12/17/20 11:42 PT 9.8 Seconds (9.0-12.0) 12/17/20 11:42 INR 1.0 (0.9-1.1) 12/17/20 11:42 APTT 23.9 Seconds (21.0-31.0) 12/17/20 11:42 Urine Color Dark Yellow 12/17/20 11:42 Urine Appearance Clear (Clear) 12/17/20 11:42 Urine pH 5.5 (4.5-7.5) 12/17/20 11:42 Ur Specific [place] 1.019 (1.000-1.030) 12/17/20 11:42 Urine Protein Negative (Negative) 12/17/20 11:42 Urine Glucose (UA) Negative (Negative) 12/17/20 11:42 Urine Ketones Negative (Negative) 12/17/20 11:42 Urine Nitrite Negative (Negative) 12/17/20 11:42 Ur Leukocyte Esterase Negative (Negative) 12/17/20 11:42 Blood Type O Positive 12/17/20 11:42 Antibody Screen NEGATIVE 12/17/20 11:42 Electrocardiogram Date: 12/17/20 Sinus rhythm at 74 bpm with first-degree AV block. Otherwise normal EKG. No significant change compared with 06/16/2018 EKG. Chest X-Ray Date: 12/17/20 Findings: + NAD
--- NOTE | 2020-12-17 12:16 | XRay Report ---
XR chest Pre-admission PA/Lat CLINICAL HISTORY: Preoperative chest COMPARISON STUDY: 05/05/2019 FINDINGS: The cardiac and mediastinal contours are normal. There is no evidence of focal pulmonary co nsolidation. There is no evidence of failure. No pleural effusions are visualized.[ IMPRESSION: No active disease in the chest. ACT 112: Negative or not required by law. Electronically signed by: Maynor Winters M.D. 12/17/2020 12:15 PM
[2020-12-17 12:52] LABS: Basophils # (auto) 0.01 K/uL (0-0.2); Basophils % (auto) 0.2 %; Eosinophils # (auto) 0.09 K/uL (0-0.5); Eosinophils % (auto) 1.6 %; Hematocrit (blood only) 37.5 % (37-47); Hemoglobin 12.2 g/dL (12.0-16.0); Lymphocytes # (auto) 1.47 K/uL (1.2-3.4); Lymphocytes % (auto) 25.4 %; Mean Corpuscular Hemoglobin 28.4 pg (25-34); Mean Corpuscular Hgb Conc 32.5 g/dL (32-36); Mean Corpuscular Volume 87.2 fL (80-100); Mean Platelet Volume 10.1 fL (7.4-10.4); Monocytes # (auto) 0.42 K/uL (0.11-0.59); Monocytes % (auto) 7.3 %; Neutrophils # (auto) 3.79 K/uL (1.4-6.5); Neutrophils % (auto) 65.5 %; Platelet Count 230 K/uL (130-400); RDW Coefficient of Variation 13.2 % (11.5-14.5); RDW Standard Deviation 42.1 fL (36.4-46.3); White Blood Count 5.78 K/uL (4.8-10.8)
[2020-12-17 12:56] LABS: Appearance Urine Clear (Clear); Bilirubin Urine Negative (Negative); Blood Urine Negative (Negative); Color Urine Dark Yellow; Glucose Urine UA Negative (Negative); Ketones Urine Negative (Negative); Leukocyte Esterase Urine Negative (Negative); Nitrite Urine Negative (Negative); Protein Urine Negative (Negative); Specific Gravity Urine 1.019 (1.000-1.030); Urobilinogen Urine Negative (Negative); pH Urine 5.5 (4.5-7.5)
[2020-12-17 13:04] LABS: BUN Creatinine Ratio 30.7 (10-20); Calcium 10.1 mg/dl (8.5-10.1); Creatinine Clr Calc Pharmacy 84.5 ml/min; Est GFR (African American) 81.7; Est GFR (Non-African American) 70.4; Partial Thromboplastin Ratio 0.9; Partial Thromboplastin Time 23.9 Seconds (21.0-31.0); Potassium 4.1 mmol/L (3.5-5.1); Prothrombin Time 9.8 Seconds (9.0-12.0)
--- NOTE | 2020-12-18 07:20 | Electrocardiogram Report ---
Test Reason : Blood Pressure : / mmHG Vent. Rate : 074 BPM Atrial Rate : 074 BPM P-R Int : 210 ms QRS Dur : 104 ms QT Int : 412 ms P-R-T Axes : 046 052 056 degrees QTc Int : 457 ms Sinus rhythm with 1st degree A-V block Otherwise normal ECG When compared with ECG of 16-JUN-2018 12:34, No significant change was found Confirmed by Fantasma Burris ([id number]) on 12/18/2020 7:20:17 AM Referred By: Carlos A Gonsalves Confirmed By:Fantasma Burris
--- NOTE | 2020-12-26 18:49 | History & Physical Report ---
Date of Service December 26, 2020 Assessment & Plan (1) Degenerative joint disease of right hip: Postoperative prescriptions for Percocet and Coumadin will be provided at discharge from the hospital. Anticipate discharge to home with home health services. The patient will obtain a COVID nasal swab testing prior to surgery. She is aware of the COVID-19 risks associated with surgery. She is currently asymptomatic of any COVID-19 symptoms. The patient will be sent to [facility] for blood work, EKG, and chest x-ray today. She has an appointment to see her PCP for medical clearance. She already has a cane and walker at home from her previous surgery. PDMP was checked and there are no concerning findings. History of Present Illness Chief Complaint: Right hip pain Primary Care Provider: Lenny Reese MD This 70-year-old female presents for her preoperative history and physical. She is scheduled to undergo a right total hip arthroplasty on 01/02/2021. The patient has had right hip pain for the last several years, but it has become worse in the last 6 months. Pain is worse with weightbearing or walking. Pain is affecting her ADLs. She denies any numbness or tingling. No specific trauma. Pain is anterior in the flexion crease as well as lateral. She has a history of previous right total knee arthroplasty and left total knee arthroplasty. She states that the right hip is starting to feel the way to the left hip used to. Preoperative imaging has been obtained. Allergies Allergy/AdvReac Type Severity Reaction Status Date / Time adhesive Allergy Mild Skin Verified 12/18/20 10:39 redness with tape "years ago" No Known Drug Allergies Allergy Unknown NONE Verified 12/18/20 10:39 Home Medications Medication Instructions Recorded Confirmed Type hyoscyamine sulfate 0.125 mg 0.125 mg SL ONCE PRN #30 tab 01/30/20 12/18/20 Rx sublingual tablet levothyroxine 100 mcg tablet 100 mcg PO QAM #90 tab 02/28/20 12/18/20 Rx triamcinolone acetonide 0.1 % 1 applic DENTAL BID 10 Days #5 g 07/02/20 12/18/20 Rx dental paste aspirin 81 mg chewable tablet 81 mg PO HS 07/04/20 12/18/20 History hydrocodone 5 mg-acetaminophen 325 1 tab PO Q6H PRN #60 tab 08/21/20 12/18/20 Rx mg tablet Vitamin C 1 tab PO QPM 12/07/20 12/18/20 History Vitamin D 1 tab PO QPM 12/07/20 12/18/20 History pravastatin 20 mg PO HS 12/07/20 12/18/20 History triamterene-hydrochlorothiazid 1 tab PO HS 12/07/20 12/18/20 History vitamin B complex 1 tab PO QPM 12/07/20 12/18/20 History Past Med/Surg History Medical History Acute sinusitis Adenomatous polyp of colon Asymptomatic postmenopausal status Avascular necrosis HIPS Constipation Generalized osteoarthritis Hyperlipidemia Hypertension Hypothyroidism Internal hemorrhoids Knee pain, left Laryngopharyngeal reflux HX-UNDER CONTROL Leukopenia hx Nontoxic multinodular goiter Obesity Osteoarthritis Pain in joint involving left ankle and foot Palpitations PT DENIES Pre-diabetes Trochanteric bursitis Surgical History History of ankle surgery (~08/05/07) Right Paulette's resection. Debridement Achilles tendon. Calcaneal exostectomy History of section History of colonoscopy History of esophagogastroduodenoscopy (EGD) History of right knee joint replacement History of total hip arthroplasty LEFT History of wisdom tooth extraction Hx of total hysterectomy (~1996) With BSO Hx of tubal ligation Family History Brother Family history of diabetes mellitus Sister Family history of diabetes mellitus Mother Family history of diabetes mellitus Grandmother (Maternal) Bladder cancer Grandmother (Paternal) Breast cancer Grandfather (Maternal) Colorectal cancer Other No family history of allergies No family history of bleeding disorder Denies family history of Ovarian cancer Hearing loss Social History Smoking Status: Never smoker Second Hand Exposure: No; Do You Dip or Chew Tobacco: No; Hx Alcohol Use: Yes Alcohol type: hard liquor Alcohol Intake Frequency: 2-4 x/Month Hx Substance Use: No Preferred Language: Honduran Communication Ability: Effective Visual Impairment: No Limitations Hearing Ability: Normal Railroad Conductor Required: No Beliefs That Will Affect Care: None marital status: Current Living Situation: Spouse current occupational status: employed 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 Physical Exam Physical Exam: Vitals: Height 175 cm, weight 116 kilograms, BMI 37.9, temperature 36.4, BP 140/80, pulse 70, O2 sat 99% on room air. General: Well- developed, well-nourished, elderly white female in no acute distress. Sitting in a chair. Alert and oriented. Morbidly obese. Skin: Warm and dry with good turgor. No rashes or lesions. No ecchymosis or erythema. No intraarticular effusion. HEENT: Normocephalic, atraumatic. Eyes: PERRLA, EOMI. Nares and oropharynx exams deferred due to COVID precautions. The patient has known dental caps. Heart: RRR, no MGR. Lungs: Clear to auscultation bilaterally, no crackles, rhonchi or wheezing, good air movement. Abdomen: Obese, bowel sounds present x4, soft, nontender. No organomegaly. No masses. Musculoskeletal: Right hip evaluation shows no obvious asymmetry or deformity. There is limited motion of the hip secondary to pain. Flexion to around 100 degrees. External rotation around 10 degrees, internal rotation limited to neutral secondary to pain. There is focal discomfort with palpation around the anterior flexion crease as well as over the IT band and greater trochanter. No pain with palpation over her right knee. The patient is ambulatory with an antalgic gait using a cane. Neurologic: Gross sensation is intact across the lower extremities by soft touch. Peripheral pulses are 2+. Results & Data Results & Data ([facility]) Diagnostic Findings Radiographic imaging previously obtained shows advanced DJD of the right hip. She has a well-aligned left total hip arthroplasty.
[2021-01-02] MEDS ORDERED: ROPIVACAINE 0.5% HCL/PF 150 MG, BUPIVACAINE 0.75% MPF 20 ML, EPINEPHrine 0.15 MG, Ketor... INFIL SCH (06:00)
[2021-01-02] MEDS ORDERED: LR 500ML BOLUS, THEN 15ML/HR IV SCH (06:00)
[2021-01-02] MEDS ORDERED: ceFAZolin 2000MG 2,000 MG/15 ML SYR IV SCH (06:00)
[2021-01-02] MEDS ORDERED: TRANEXAMIC ACID 1,000 MG **IV Pre-op IV SCH (06:00)
[2021-01-02] MEDS ORDERED: LR 60ML/HR IV SCH (06:00)
[2021-01-02] MEDS ORDERED: BUPIVACAINE 0.5 % 5 MG/1 ML PF 10ML VIAL ONE (06:16)
--- NOTE | 2021-01-02 06:21 | History & Physical Bridge Note ---
Date of Service January 02, 2021 History & Physical Bridge Note I have examined the patient, reviewed the History & Physical and in the interval since the performance of the History & Physical I have noted the following changes of clinical significance: consent obtained/site verified/covid screen negative.no changes noted
[2021-01-02] MEDS ORDERED: LIDOCAINE 2% 2 ML VIAL/AMP(20MG/ML) INFIL ONE (06:29)
[2021-01-02] MEDS ORDERED: fentaNYL citrate 100 MCG/2 ML VIAL ONE (06:29)
[2021-01-02] MEDS ORDERED: PROPOFOL IV EMULSION 10 MG/ML 20 ML VIAL IV ONE ×2 (06:29→06:34)
[2021-01-02] MEDS ORDERED: MIDAZOLAM HCL 1 MG/ML 2ML VIAL ONE (06:29)
[2021-01-02] MEDS ORDERED: ePHEDrine sulfate 50 MG/ML AMP IV PRN (06:42)
[2021-01-02] MEDS ORDERED: HYDROmorphone INJ 2 MG/ML SYR/VIAL IV PRN (06:42)
[2021-01-02] MEDS ORDERED: ATROPINE SULFATE 0.1 MG/ML 10ML SYR IV PRN (06:42)
[2021-01-02] MEDS ORDERED: fentaNYL citrate 100 MCG/2 ML VIAL IV PRN (06:42)
[2021-01-02] MEDS ORDERED: ONDANSETRON INJ 2 MG/ML 2 ML VIAL IV PRN ×2 (06:42→09:43)
[2021-01-02] MEDS ORDERED: ORTHO JOINT ANESTHETIC ONE (06:48)
[2021-01-02] MEDS ORDERED: ceFAZolin 1000MG 1,000 MG/7.5 ML SYR IV ONE (07:31)
[2021-01-02] MEDS ORDERED: PHENYLEPHRINE 100MCG/ML 5ML SYR ONE (07:35)
--- NOTE | 2021-01-02 08:41 | Post Operative Brief Note ---
Immediate Post Op Note v1 Date of Surgery January 02, 2021 Pre & Post Diagnosis Operation Date: 01/02/21 07:00 Pre-Op Diagnosis: Right Hip Degenerative Joint Disease Post-Op Diagnosis: Right Hip Degenerative Joint Disease I identified the patient and participated in the time-out.: Yes Procedure Operation Date: 01/02/21 07:00 Actual Procedures p Right Total Hip Arthroplasty--Uncemented(Right) - Carlos A Gonsalves MD Surgeon Carlos A Gonsalves MD [facility] Estimated Blood Loss 150 Findings Consistent with Post-Op Diagnosis
--- NOTE | 2021-01-02 08:57 | Operative Report ---
Post Operative Report Pre & Post Diagnosis Operation Date: 01/02/21 07:00 Pre-Op Diagnosis: Right Hip Degenerative Joint Disease Post-Op Diagnosis: Right Hip Degenerative Joint Disease I identified the patient and participated in the time-out.: Yes Procedure Operation Date: 01/02/21 07:00 Actual Procedures p Right Total Hip Arthroplasty--Uncemented(Right) - Carlos A Gonsalves MD Surgeon TRINY Gonsalves MD Graduate Engineer jodi UMANZOR Estimated Blood Loss 150 Findings Consistent with Post-Op Diagnosis Specimens see operative report Drains none Complications none Disposition Accompanied Patient To Recovery: Yes Disposition: Recovery Room Indications This 70-year-old female presented to the office with complaints of intractable right hip pain. She had tried conservative care measures without improvement. Patient elected to proceed with surgical intervention after being educated about potential risks and outcomes. Preoperative imaging was obtained. Description of Procedure Patient was administered a spinal anesthetic and then taken to the operating room and given sedation. She was prepped and draped in the usual sterile fashion. She was prepped and draped in the usual sterile fashion. Please see Dr. Gonsalves's operative report for specifics of the procedure. I was present for the entire case from initial patient positioning through final wound closure. Assistance was provided in tissue retraction, hemostasis, trial implant placement, final implant placement, and final wound closure. Patient was taken to the recovery room in satisfactory condition. I attest to the content of the Intraoperative Record and any orders documented therein. Any exceptions are noted below.
--- NOTE | 2021-01-02 09:02 | Operative Report (OR) ---
DATE OF OPERATION: 01/02/2021 SURGEON: Carlos A Gonsalves MD. DIRECTOR STATISTICAL PROGRAMMING: Les Jordan PA-C. No resident or fellow available. PREOPERATIVE DIAGNOSES: Osteoarthritis, right hip; high BMI. POSTOPERATIVE DIAGNOSES: Osteoarthritis, right hip; high BMI. OPERATION PERFORMED: Noncemented right total hip replacement. The patient with high BMI. SUMMARY OF IMPLANTS: Size 52 acetabular shell sector cup hole eliminator, 25 mm x 6.5 screw, 36 x 52 neutral liner, 6 high offset Tri-Lock 36 x 8.5 ceramic head. ESTIMATED BLOOD LOSS: 150 mL. CRYSTALLOID: Per anesthesia. PATHOLOGY: Pending on bone. PERIOPERATIVE SITUATION: Medically cleared female with intractable hip pain, has high BMI. She had her other hip done and no issues. Wants to proceed with this side. She understands there are no guarantees. She understands the course may not be exactly the same as the other one. DESCRIPTION OF PROCEDURE: The patient was appropriately identified, site verified, consent verified. Antibiotics confirmed as being given. The right lower extremity was prepped and draped in usual routine fashion with the patient in the left lateral decubitus position. The right leg was slightly long. This was baseline based on arthritis of her knees on her spine. A generous incision was made based on high BMI, Charnley was used in the subcutaneous layer. Full thickness flaps raised. IT band and the gluteus josesito fascia incised. Retractor placed. Care taken to protect the sciatic nerve. Short external rotators and capsule released, nerve protected hip dislocated. Femoral neck resected. Acetabular exposure was good. Appropriate retractors placed. Serial reaming carried up to 52 and a 52 cup impacted into appropriate anteversion and inclination. It was secured with a 6.5 x 25 screw. Good purchase was obtained. The wound was then irrigated, femur was then brought into the wound and the box car loader, lateral canal rasp, canal finder and serial broaching carried up to a size 6. Appropriate implant was then placed with the trial and the hip was stable in all planes. Leg lengths were virtually what they were preop. The hip was then dislocated. All remaining trial elements were removed. The wound irrigated one final time with Betadine and Pulsavac and then the hole eliminator seated, liner seated, permanent head and stem seated. The hip reduced. It was stable in all planes. Leg lengths were good. The hip was then closed in multiple layers using #2 Vicryl for the capsule and the short external rotators for the deep fascia, for the deep fat and then 2-0 Vicryl for the superficial fat and subcutaneous tissue. Stainless steel clips for skin. Appropriate dressing applied. She will wear a Prevena. She was then transferred to the recovery room in satisfactory condition having tolerated the procedure well. I attest to the content of the Intraoperative Record and any orders documented therein. Any exception s are noted below.
[2021-01-02] MEDS ORDERED: VANCOMYCIN HCL 1,750 MG in SODIUM CHLORIDE 0.9% 250 ML IV SCH (09:04)
--- NOTE | 2021-01-02 09:06 | XRay Report ---
XR pelvis 1-2V routine CLINICAL HISTORY: Postop study COMPARISON: 11/26/2020 DISCUSSION: A total left hip arthroplasty is again visualized. There is now evidence for a total righ t hip arthroplasty. There is no dislocation. There is gas present within the soft tissues consistent with recent surgery. There are overlying skin luis. IMPRESSION: Interval total right hip arthroplasty. No evidence of dislocation ACT 112: Negative or not required by law. Electronically signed by: Maynor Winters M.D. 01/02/2021 9:05 AM
[2021-01-02] MEDS ORDERED: NALOXONE HCL 0.4 MG/1 ML VIAL/CARP IV PRN (09:43)
[2021-01-02] MEDS ORDERED: METOCLOPRAMIDE HCL INJ 5 MG/ML 2 ML VIAL IV PRN (09:43)
[2021-01-02] MEDS ORDERED: diphenhydrAMINE 50 MG/ML VIAL IV PRN (09:43)
[2021-01-02] MEDS ORDERED: bisacodyL 10 MG SUPP PR PRN (09:43)
[2021-01-02] MEDS ORDERED: HYDROmorphone INJ 0.5 MG/0.5 ML SYR IV PRN (09:43)
[2021-01-02] MEDS ORDERED: MAGNESIUM HYDROXIDE SUSP 30 ML UDC PO PRN (09:43)
[2021-01-02] MEDS ORDERED: SODIUM CHLORIDE 0.9% 1000ML 1,000 ML IV SCH (09:43)
[2021-01-02] MEDS ORDERED: ALUMINUM/MAGNESIUM SUSP 30 ML UDC PO PRN (09:43)
[2021-01-02] MEDS ORDERED: VANCOMYCIN HCL 1,750 MG in SODIUM CHLORIDE 0.9% 500 ML IV ONE (09:45)
--- NOTE | 2021-01-02 09:51 | Anesthesiology Progress Note ---
Date of Service January 02, 2021 Anesthesia Post Procedure Vital Signs Vital Signs: Temp Pulse Resp BP BP Pulse Ox 01/02/21 09:25 36.7 C 12 133/46 L 100 01/02/21 09:15 12 112/57 L 100 01/02/21 09:05 12 114/60 100 01/02/21 08:55 36.4 C L 14 94/64 L 100 01/02/21 06:28 68 20 135/72 98 01/02/21 05:44 36.7 C 74 20 138/76 98 Pain Intensity Right Hip: Pain Intensity: 8 Transfer of Care Handoff Completed per policy Notes Mental Status: alert / awake / arousable and participated in evaluation Patient Amnestic to Procedure: Yes Nausea / Vomiting: adequately controlled Pain: adequately controlled Airway Patency, RR, SpO2: stable & adequate BP & HR: stable & adequate Hydration State: stable & adequate Anesthetic Complications: no major complications apparent and Pt Satisfied with anesthetic care
[2021-01-02] MEDS: LEVOTHYROXINE SODIUM 100 MCG TABLET PO SCH (09:53)
[2021-01-02] MEDS ORDERED: HYOSCYAMINE SULFATE 0.125 MG TAB SL PRN (09:57)
[2021-01-02] MEDS: KETOROLAC TROMETHAMINE 15 MG/ML VIAL IV SCH ×3 (10:18→21:37)
[2021-01-02] MEDS: MULTIVITAMIN TAB PO SCH (10:18)
[2021-01-02] MEDS: TRIAMCINOLONE ACET 0.1% ORABASE 5 GM TUBE MT SCH ×2 (10:19→21:37)
[2021-01-02] MEDS: DOCUSATE SODIUM 100 MG CAP PO SCH ×2 (10:19→21:36)
--- NOTE | 2021-01-02 11:32 | Progress Notes ---
DATE: 01/02/2021 SUBJECTIVE: Postop check, status post right total hip replacement. The patient is sitting up in bed, doing her incentive spirometer breathing exercises. She denies chest pain, shortness of breath, fever, chills, nausea, vomiting or headache. OBJECTIVE: Vital signs are stable. She is afebrile. Wound dressing is clean, dry and intact. Neurovascular check of femoral sciatic nerve is normal. Hip is located. Postop x-rays look excellent. ASSESSMENT: Doing well. Plan is to discharge to home tomorrow if she does well tonight. I spoke to social service/egg caser. She wants the same services as the last time.
--- NOTE | 2021-01-02 12:26 | Discharge Summary (DS) ---
CHIEF COMPLAINT: Right hip pain. HISTORY OF PRESENT ILLNESS: Underwent elective right total hip replacement. Her hospital course to date has been uneventful. She is eating and drinking. She denies any chest pain, shortness of breath, fever, chills, nausea, vomiting or headache. HOME MEDICATIONS: List includes hyoscyamine sublingual tablet p.r.n., levothyroxine, triamcinolone acetonide dental paste, aspirin 81 mg, hydrocodone 5/325 p.r.n., vitamins, pravastatin, triamterene-hydrochlorothiazide, vitamin B. PAST MEDICAL HISTORY: Remarkable for sinusitis, colon polyps, AVN of hips, constipation, osteoarthritis, internal hemorrhoids, osteoarthritis of her knees, leukopenia, goiter, osteoarthritis of her feet, palpitations, prediabetes. PAST SURGICAL HISTORY: Reveals that she has had ankle surgery, calcaneal tendon attachment surgery, , colonoscopies, EGDs, right knee joint replacement, left hip replacement, hysterectomy, tubal ligation. FAMILY HISTORY: Remarkable for diabetes, bladder cancer, breast cancer, colorectal cancer. Denies ovarian or hearing problems. SOCIAL HISTORY: Reveals that she does not smoke. She is . Uses social alcohol only. Hears normally. Feels safe at home. Lives with her . REVIEW OF SYSTEMS: Noncontributory. Postop x-rays look excellent. ASSESSMENT: Doing well. Discharge to home tomorrow. To her medication profile, add Coumadin to keep INR 1.8-2.2 and the standard same pain medication.
[2021-01-02] MEDS: ACETAMINOPHEN 500 MG TAB PO SCH ×2 (13:37→21:37)
[2021-01-02] MEDS: oxyCODONE HCL IR 5 MG TAB (IMMEDIATE RELEASE) PO PRN ×2 (13:38→17:55)
[2021-01-02] MEDS ORDERED: ORTHO WARFARIN NOMOGRAM SCH (14:00)
[2021-01-02] MEDS ORDERED: TRANEXAMIC ACID / 0.7% NACL 1,000 MG/100 ML BAG IV SCH (15:00)
[2021-01-02] MEDS: ceFAZolin 2000MG 2,000 MG/15 ML SYR IV SCH ×2 (15:10→22:56)
[2021-01-02] MEDS ORDERED: WARFARIN SOD 5 MG TAB PO ONE (16:00)
[2021-01-02] MEDS: FERROUS GLUCONATE 324 MG TAB PO SCH (17:55)
[2021-01-02] MEDS: ASCORBIC ACID 500 MG TAB PO SCH (17:55)
[2021-01-02] MEDS ORDERED: PRAVASTATIN SOD 20 MG TAB PO SCH (21:00)
[2021-01-02] MEDS ORDERED: TRIAMTERENE/HCTZ 37.5/25MG TAB PO SCH (21:00)
[2021-01-02] MEDS ORDERED: SENNA 8.6 MG TAB PO SCH (21:00)
[2021-01-02] MEDS ORDERED: ASPIRIN 81 MG CHEW PO SCH (21:00)
[2021-01-03] MEDS: KETOROLAC TROMETHAMINE 15 MG/ML VIAL IV SCH (05:32)
[2021-01-03] MEDS: ACETAMINOPHEN 500 MG TAB PO SCH (05:33)
[2021-01-03] MEDS: LEVOTHYROXINE SODIUM 100 MCG TABLET PO SCH (05:33)
[2021-01-03 05:36] LABS: Eosinophils # (auto) 0.15 K/uL (0-0.5); Eosinophils % (auto) 2.1 %; Hematocrit (blood only) 31.6 % (37-47); Hemoglobin 10.5 g/dL (12.0-16.0); Immature Granulocytes # (auto) 0.01 K/uL (0.00-0.02); Immature Granulocytes % (auto) 0.1 %; Lymphocytes # (auto) 0.93 K/uL (1.2-3.4); Lymphocytes % (auto) 13.3 %; Mean Corpuscular Hemoglobin 28.7 pg (25-34); Mean Corpuscular Hgb Conc 33.2 g/dL (32-36); Mean Corpuscular Volume 86.3 fL (80-100); Mean Platelet Volume 9.5 fL (7.4-10.4); Monocytes # (auto) 0.45 K/uL (0.11-0.59); Monocytes % (auto) 6.4 %; Neutrophils # (auto) 5.45 K/uL (1.4-6.5); Neutrophils % (auto) 78.1 %; Platelet Count 164 K/uL (130-400); RDW Coefficient of Variation 13.2 % (11.5-14.5); RDW Standard Deviation 41.9 fL (36.4-46.3); Red Blood Count 3.66 M/uL (4.2-5.4); White Blood Count 6.99 K/uL (4.8-10.8)
[2021-01-03 05:47] LABS: Prothrombin Time 10.1 Seconds (9.0-12.0)
[2021-01-03 06:03] LABS: BUN Creatinine Ratio 31.3 (10-20); Calcium 8.9 mg/dl (8.5-10.1); Creatinine Clr Calc Pharmacy 85.5 ml/min; Est GFR (African American) 81.7 ml/min; Est GFR (Non-African American) 70.4 ml/min
[2021-01-03] MEDS: FERROUS GLUCONATE 324 MG TAB PO SCH (07:36)
[2021-01-03] MEDS: MULTIVITAMIN TAB PO SCH (07:36)
[2021-01-03] MEDS: DOCUSATE SODIUM 100 MG CAP PO SCH (07:37)
[2021-01-03] MEDS: ASCORBIC ACID 500 MG TAB PO SCH (07:37)
[2021-01-03] MEDS: TRIAMCINOLONE ACET 0.1% ORABASE 5 GM TUBE MT SCH (07:37)
[2021-01-03] MEDS ORDERED: dexAMETHasone 10 MG in SYRINGE 0 ML IV SCH (08:00)
--- NOTE | 2021-01-03 08:48 | Orthopedic Progress Note ---
Date of Service January 03, 2021 Assessment & Plan (1) Status post total hip replacement, right: Patient's dressing was changed today by me. Prevena wound VAC was placed. She will return to the office on January 10 for wound VAC removal. Continue ambulating with her walker. Importance of sleeping with a pillow between her legs was discussed at length. Stable removal visit has already been made for January 17. Prescriptions for Percocet and Coumadin have been sent to her pharmacy. She will take 4 mg daily and have her blood rechecked on Thursday. Written discharge instructions have been provided. Call the office with any other concerns. She may be discharged to home today with home health services. Admission and Anticipated Discharge Date Admission Date: January 02, 2021 Subjective Patient is seen in her room this morning. States she did fairly well overnight. Currently has minimal pain. She has been ambulatory. She is currently eating breakfast. Alert and conversive. Feels ready for discharge to home. She denies any chest pain, shortness of breath, nausea, vomiting, or abdominal pain. Mild right hip pain. Review of Systems Review of Systems: Unchanged from yesterday. Physical Exam Physical Exam: General: Well-developed, well-nourished, elderly female, in no acute distress. Sitting in her chair. Alert and oriented. Conversive. Skin: Warm dry with good turgor. Postsurgical dressing is in place on the right hip. There is no bleed through. Upon removal, mild drainage on the dressings. She has no active bleeding. Gay are intact. Wound edges are well approximated. Expected postoperative edema. No ecchymosis. Musculoskeletal: Patient has supple motion of her right hip. Rises fairly easily from her chair. Ambulates well in the room with her walker. Intact motor function to the right knee, ankle, and toes. Neurologic: Gross sensation is intact across the right leg by soft touch. Results & Data ([facility]) Vital Signs (Past 12 Hours) Vital Signs Temp Pulse Resp BP BP Pulse Ox 01/03/21 07:27 36.7 C 76 16 144/73 H 96 01/03/21 04:38 36.7 C 75 16 135/75 98 01/02/21 22:26 36.6 C 83 16 124/70 97 Laboratory Results WBCs 6.99. Hemoglobin 10.5, hematocrit 31.6. INR is 1.1. PRP is unremarkable. Glucose is 125.
--- NOTE | 2021-01-03 08:48 | Progress Notes ---
DATE: 01/03/2021 SUBJECTIVE: Postop day #1 status post right total hip replacement. The patient is doing well. She has no major issues. She is up and ambulatory. She is eating, drinking, voiding. She denies chest pain, shortness of breath, fever, chills, nausea, vomiting or headache. OBJECTIVE: VITAL SIGNS: Stable. She is afebrile. LABORATORY WORK: Hematocrit stable at 31.6. INR is 1.0. Electrolytes are good. Wound clean and dry. Neurovascular check femoral sciatic nerve is normal. Calves nontender. ASSESSMENT: Doing well. Discharge to home today after PT, OT. Coumadin dose per nomogram.
[2021-01-03] MEDS ORDERED: WARFARIN SOD 5 MG TAB PO SCH (10:00)
[2021-01-03] MEDS: oxyCODONE HCL IR 5 MG TAB (IMMEDIATE RELEASE) PO PRN (11:53)
== END 2021-01-03 11:57 | disposition home health service (06) ==
LOC: ASU 05:22 → 3E 05:22

== ENCOUNTER 2024-11-09 05:14 | Observation (INO) ==
--- NOTE | 2024-09-27 10:51 | PAT Medication Instructions ---
Medication Instructions Date of Service September 27, 2024 Home Medications Medication Instructions Recorded hyoscyamine sulfate 0.125 mg 0.125 mg sublingual ONCE PRN 12/09/23 sublingual tablet RECTAL SPASM #30 tabs levothyroxine 100 mcg tablet 100 mcg PO QAM #90 tabs 02/23/24 triamterene 37.5 1 tab PO HS #90 tabs 02/23/24 mg-hydrochlorothiazide 25 mg tablet metformin 500 mg tablet,extended 1,000 mg (2 x 500 mg) PO BID #360 08/08/24 release 24 hr tabs aspirin 81 mg chewable tablet 81 mg PO HS vitamin B complex 1 tab PO QPM ascorbic acid (vitamin C) 1,000 mg tablet (Vitamin C) 1 g PO Q6H cholecalciferol (vitamin D3) 10 mcg (400 unit) tablet (Vitamin D3) 10 mcg PO DAILY docusate sodium 100 mg capsule (Stool Softener) 100 mg PO DAILY hyoscyamine sulfate 0.125 mg sublingual tablet 0.125 mg sublingual ONCE PRN RECTAL SPASM levothyroxine 100 mcg tablet 100 mcg PO QAM triamterene 37.5 mg-hydrochlorothiazide 25 mg tablet 1 tab PO HS metformin 500 mg tablet,extended release 24 hr 1,000 mg (2 x 500 mg) PO BID rosuvastatin 5 mg tablet 5 mg PO UD Continue as directed rosuvastatin 5 mg tablet 5 mg PO UD ASK your prescriber and surgeon aspirin 81 mg chewable tablet 81 mg PO HS DO NOT take the morning of surgery ascorbic acid (vitamin C) 1,000 mg tablet (Vitamin C) 1 g PO Q6H cholecalciferol (vitamin D3) 10 mcg (400 unit) tablet (Vitamin D3) 10 mcg PO DAILY docusate sodium 100 mg capsule (Stool Softener) 100 mg PO DAILY hyoscyamine sulfate 0.125 mg sublingual tablet 0.125 mg sublingual ONCE PRN RECTAL SPASM metformin 500 mg tablet,extended release 24 hr 1,000 mg (2 x 500 mg) PO BID Take morning of surgery With a small sip of water, OTHERWISE NOTHING TO EAT OR DRINK AFTER MIDNIGHT: levothyroxine 100 mcg tablet 100 mcg PO QAM Take evening before surgery vitamin B complex 1 tab PO QPM ascorbic acid (vitamin C) 1,000 mg tablet (Vitamin C) 1 g PO Q6H hyoscyamine sulfate 0.125 mg sublingual tablet 0.125 mg sublingual ONCE PRN RECTAL SPASM (if needed) triamterene 37.5 mg-hydrochlorothiazide 25 mg tablet 1 tab PO HS metformin 500 mg tablet,extended release 24 hr 1,000 mg (2 x 500 mg) PO BID Other Notes If you have any questions please call us at [phone] or [phone] or [phone] or [phone]
--- NOTE | 2024-10-05 09:35 | Anesthesiology Consultation ---
Date of Service October 05, 2024 Assessment & Plan (1) Encounter for pre-operative examination: Chart Review Chart Review: Acceptable Risk for Surgery (pending surgeon ordered PCP clearance ) and Patient seen in Pre Admission Testing - Awaiting PCP clearance 10/19/24 ([place]) - Check BSG AM DOS Pt currently scheduled as 23 hours observation. If surgeon decides to change patient to Same Day Joint, patient would be acceptable risk for TKA, pending patient is motivated, has good support and surgeon's office completes [facility] Program preop requirements. Per PAT appt on 10/05/24, no recent illness/disease exposures, illness related symptoms, or recent illness/disease positive tests. Will leave to surgeon's discretion if preop Covid testing needed Teaching & Discussion Pre-Anesthesia Teaching/Discussion Notes: Instructed NPO after midnight before surgery,except medications with 15 cc of water. Medication instructions provided according to the PAT guidelines. History Surgery Operation Date: 11/09/24 07:00 Proposed Procedures p Left Total Knee Arthroplasty - Carlos A Gonsalves MD Height/Weight Height: 5 ft 9.5 in Weight: 117.5 kg Allergies Allergy/AdvReac Type Severity Reaction Status Date / Time adhesive Allergy Unknown Skin Verified 09/26/24 14:32 redness with tape "years ago" No Known Drug Allergies Allergy Unknown NONE Verified 09/26/24 14:32 Medications Home Medications Medication Instructions Recorded Confirmed Last Taken aspirin 81 mg chewable tablet 81 mg PO HS 07/04/20 09/26/24 02/10/22 08:00 vitamin B complex 1 tab PO QPM 12/07/20 09/26/24 02/25/22 22:00 ascorbic acid (vitamin C) 1,000 mg 1 g PO Q6H 02/18/22 09/26/24 02/25/22 22:00 tablet (Vitamin C) cholecalciferol (vitamin D3) 10 10 mcg PO DAILY 02/18/22 09/26/24 02/25/22 08:00 mcg (400 unit) tablet (Vitamin D3) docusate sodium 100 mg capsule 100 mg PO DAILY 02/18/22 09/26/24 02/24/22 08:00 (Stool Softener) hyoscyamine sulfate 0.125 mg 0.125 mg sublingual ONCE PRN 12/09/23 09/26/24 Unk nown sublingual tablet RECTAL SPASM #30 tabs levothyroxine 100 mcg tablet 100 mcg PO QAM #90 tabs 02/23/24 09/26/24 Unknown triamterene 37.5 1 tab PO HS #90 tabs 02/23/24 09/26/24 Unknown mg-hydrochlorothiazide 25 mg tablet metformin 500 mg tablet,extended 1,000 mg (2 x 500 mg) PO BID #360 08/08/24 09/26/24 Unknown release 24 hr tabs rosuvastatin 5 mg tablet 5 mg PO UD 09/26/24 09/26/24 Unknown Past Medical History Medical History Constipation chronic Family history of reaction to anesthesia GRANDFATHER - HAD TROUBLE COMING OUT OF ANESTHESIA 1980 Generalized osteoarthritis History of hypertension pt denies, takes triamterene/HCTZ for swelling only History of kidney stones no sx. Hyperlipidemia Hypothyroidism Laryngopharyngeal reflux remote hx, "under control" Multiple thyroid nodules Nausea and vomiting after administration of anesthetic agent remote hx, "not with the new stuff" Nontoxic multinodular goiter Has had several biopsies- no recent issues - stable in size Obesity Prediabetes Exercise / Class Metabolic Activity II 4-5 Yardwork/Stairs/Walk up hill (one flight of stairs - no chest pain or SOB ) Past Family History Family History Brother Diabetes Hypertension Kidney disease Sister Diabetes Hypertension Kidney disease Mother Diabetes Grandmother (Maternal) Bladder cancer Grandmother (Paternal) Breast cancer Grandfather (Maternal) Colorectal cancer Father Hypertension Stroke Other Family history of high blood pressure No family history of allergies No family history of bleeding disorder Denies family history of Ovarian cancer Prostate cancer Hearing loss Myocardial infarction Past Surgical History Surgical History History of ankle surgery (~08/05/07) Right Paulette's resection. Debridement Achilles tendon. Calcaneal exostectomy History of section History of colonoscopy History of esophagogastroduodenoscopy (EGD) History of gynecologic surgery 1974 TUMOR FOUND AT 6 WEEKS PP CHECK - SX TO REMOVE TUMOR/PARTIAL HYSTERECTOM Y HX MISCARRAGE 1970 D&E History of right knee joint replacement History of total hip arthroplasty LEFT History of total right hip arthroplasty History of wisdom tooth extraction Hx of total hysterectomy (~1996) Hx of tubal ligation Past Anesthesia History No Hx of Anesthesia Complications (with exception to remote history of PONV >20 years ago) and No Family Hx of Anesthesia Complications (with exception to maternal grandfather in 1980s- had CVA type symptoms post op ) History of PONV No Hx of Motion Sickness and History of PONV (>20 years ago- no issues with recent surgeries ) Social History Smoking Status: Never smoker Do You Dip or Chew Tobacco: No Hx Alcohol Use: Yes Alcohol type: hard liquor alcohol intake frequency: holidays/special occasions only Hx Substance Use: No substance use type: does not use Review of Systems - Hx of snoring- no witnessed apnea- history of sleep study around 1999- no is sues per patient Patient denies chest pain, shortness of breath, dyspnea on exertion, cough, wheezing, palpitations. No hx of seizures, stroke, [place]. No hx of blood clots or blood transfusions Physical Exam Vital Signs VITALS BP 116/75 P 70 TEMP 97.6 SP02 95% RESP 16 Constitutional no acute distress ENMT Mouth: no TMJ clicking Thyromental Distance: < 3.5 Finger Breadths (3.0) Mallampati Class: III Top left tooth crowned; crowns to side teeth Neck + limited neck extension Respiratory normal respiratory effort; no respiratory distress Auscultation: lungs clear to auscultation bilaterally and + diminished lung sounds (mildly throughout ); no wheezes Cardiovascular Rate/Rhythm: regular rate and regular rhythm Heart Sounds: no murmur Vessels: no carotid bruit Musculoskeletal Spine: no pain with cervical ROM Extremities: extremities normal to inspection Psychiatric Orientation: alert Lab Results Anesthesia Preop Results Results Anesthesia Widget: WBC 4.35 K/ul (4.8-10.8) L 10/05/24 Hgb 11.9 g/dl (12.0-16.0) L 10/05/24 Hct 37.2 % (37.0-47.0) 10/05/24 Plt 201 K/uL (130-400) 10/05/24 Na 143 mmol/L (136-145) 10/05/24 K 4.0 mmol/L (3.5-5.1) 10/05/24 Cl 106 mmol/L (98-107) 10/05/24 CO2 33 mmol/L (21-32) H 10/05/24 BUN 31 mg/dl (6-23) H 10/05/24 Creat 0.81 mg/dl (0.6-1.2) 10/05/24 Glucose Level 103 mg/dl (70-99(Fasting)) H 10/05/24 PT 10.2 Seconds (9.0-12.0) 10/05/24 PTT 25 Seconds (21-31) 10/05/24 INR 0.9 (0.9-1.1) 10/05/24 HA1c 6.2 % (4.5-5.6) H 10/05/24 Urine Color Yellow 10/05/24 Urine Appearance Clear (Clear) 10/05/24 Urine pH 5.5 (4.5-7.5) 10/05/24 Urine Specific [place] 1.019 (1.000-1.030) 10/05/24 Urine Protein Negative (Negative) 10/05/24 Urine Glucose (UA) Negative (Negative) 10/05/24 Urine Ketones Negative (Negative) 10/05/24 Urine Blood Negative (Negative) 10/05/24 Urine Nitrite Negative (Negative) 10/05/24 Urine Bilirubin Negative (Negative) 10/05/24 Urine Urobilinogen Negative (Negative) 10/05/24 Urine Leukocyte Esterase 1+ (Negative) H 10/05/24 Urine WBC (Auto) 0-5 /hpf (0-5) 10/05/24 Urine RBC (Auto) 0-2 /hpf (0-2) 10/05/24 Urine Hyaline Casts (Auto) 0-2 /lpf (0-2) 10/05/24 Urine Epithelial Cells (Auto) 6-10 /hpf (0-2) H 10/05/24 Urine Bacteria (Auto) 2+ (None Seen) H 10/05/24 Blood Type O Positive 10/05/24 Antibody Screen NEGATIVE 10/05/24 Testing Laboratory Results Abnormal UA- surgeon's office informed- will leave to surgeon's discretion on how to proceed Electrocardiogram Date: 10/05/24 SR with sinus arrhythmia with 1st degree AVB at 62bpm Otherwise normal EKG per cardio Chest X-Ray Date: 10/05/24 Findings: + NAD and + cardiomegaly (stable/mild)
--- NOTE | 2024-11-09 05:28 | History & Physical Bridge Note ---
Date of Service November 09, 2024 History & Physical Bridge Note I have examined the patient, reviewed the History & Physical and in the interval since the performance of the History & Physical I have noted the following changes of clinical significance: consent/risks and site verified. no changes noted
[2024-11-09] MEDS: LR 500ML BOLUS, THEN 15ML/HR IV SCH (06:11)
[2024-11-09] MEDS ORDERED: BUPIVACAINE 0.5 % 5 MG/1 ML PF 10ML VIAL ONE (06:27)
[2024-11-09] MEDS ORDERED: ROPIVACAINE 0.5% 5 MG/ML 30 ML VIAL ONE (06:28)
[2024-11-09] MEDS ORDERED: MIDAZOLAM HCL 1 MG/ML 2ML VIAL ONE ×3 (06:32→08:18)
[2024-11-09] MEDS: TRANEXAMIC ACID 1,000 MG **IV Pre-op IV SCH (06:45)
[2024-11-09] MEDS: ceFAZolin 2000MG 2,000 MG/15 ML SYR IV SCH ×2 (06:59→16:58)
[2024-11-09] MEDS: LR 60ML/HR IV SCH (07:28)
[2024-11-09] MEDS: ORTHO JOINT ANESTHETIC ONE (07:30)
[2024-11-09] MEDS ORDERED: PROPOFOL IV EMULSION 10 MG/ML 20 ML VIAL IV ONE (08:12)
[2024-11-09] MEDS: TRANEXAMIC ACID 1,000 MG **IV Intra-op IV SCH (08:20)
[2024-11-09] MEDS: ROPIV 0.5% 246mg, Ketorolac 30mg, EPINEPHrine 0.5mg in NSS INFIL SCH (08:24)
[2024-11-09] MEDS ORDERED: ATROPINE SULFATE 0.1 MG/ML 10ML SYR IV PRN (08:33)
[2024-11-09] MEDS ORDERED: fentaNYL citrate PF 100 MCG/2 ML VIAL IV PRN (08:33)
[2024-11-09] MEDS ORDERED: HYDROmorphone INJ 2 MG/ML SYR/VIAL IV PRN (08:33)
[2024-11-09] MEDS ORDERED: ePHEDrine sulfate 50 MG/ML AMP IV PRN (08:33)
[2024-11-09] MEDS ORDERED: ONDANSETRON INJ 2 MG/ML 2 ML VIAL IV PRN ×2 (08:33→10:13)
[2024-11-09] MEDS ORDERED: PROMETHAZINE HCL 6.25 MG in SODIUM CHLORIDE 0.9% 50 ML IV PRN (08:33)
--- NOTE | 2024-11-09 08:47 | Post Operative Brief Note ---
Immediate Post Op Note Date of Surgery November 09, 2024 Pre & Post Diagnosis Operation Date: 11/09/24 07:00 Pre-Op Diagnosis: Left Knee Degenerative Joint Disease Post-Op Diagnosis: Left Knee Degenerative Joint Disease I identified the patient and participated in the time-out.: Yes Procedure Operation Date: 11/09/24 07:00 Actual Procedures p Left Total Knee Arthroplasty(Left) - Carlos A Gonsalves MD Surgeon Carlos A Gonsalves MD Office Equipment Technician Félix/Julian Estimated Blood Loss 100 Findings Consistent with Post-Op Diagnosis Severe disease with marked entrapment of the patellofemoral joint flexion contracture of 10 to 12 degrees varus alignment chronic ACL insufficiency Fluids 1800 cc of fluid Complications None
--- NOTE | 2024-11-09 08:51 | Operative Report ---
Post Operative Report Pre & Post Diagnosis Operation Date: 11/09/24 07:00 Pre-Op Diagnosis: Left Knee Degenerative Joint Disease Post-Op Diagnosis: Left Knee Degenerative Joint Disease I identified the patient and participated in the time-out.: Yes Procedure Operation Date: 11/09/24 07:00 Actual Procedures p Left Total Knee Arthroplasty(Left) - Carlos A Gonsalves MD Surgeon Carlos A Gonsalves MD Other Spatial Scientist Félix/Julian Estimated Blood Loss 100 Findings Consistent with Post-Op Diagnosis Severe disease flexion contracture 10 to 12 degrees varus alignment Fluids 800 cc Specimens Bone pathology Drains None Complications None Indications Severe pain positive x-rays failed conservative management flexion contracture Description of Procedure After the patient was appropriate notified site verified consent verified antibiotics confirmed to be given the left lower extremity was prepped and draped use routine fashion. Tourniquet was inflated to 275 mmHg for exsanguination limb and a rubber arthrograms for total of 66 minutes. Midline exposure utilized parapatellar arthrotomy performed. Marked incarceration of the extensor mechanism and flexion contracture present. Extensor mechanism released laterally without sacrificing the lateral retinaculum. The patella was then able to be tracked appropriately and the knee flexed. Osteophytes were resected along the margin of the patella and the anterior medial lateral surface of the femur the box of the femur was completely ossified there was no ACL. This was then all opened up with an osteotome the PCL identified. The seating hole for the intramedullary guide was then made. The PCL was then sacrificed. The tibia was then subluxated. Menisci were resected. Distal femur was then resected 11 mm. Proximal tibia was then resected 4 mm but the extension gap was still tight so an additional 2 mm were resected this was then excellent. Femur was sized to a 7 appropriate cutting block applied and the anterior posterior, and chamfer cuts then made. The flexion gap was then checked it was slightly tight medially it was released a little more than it was excellent with a 6 mm spacer. The box cut was then made. The lug holes seedings holes were made and then the size 7 distal femur route trial replacement was seated. The tibia was then subluxed in an appropriate box cut in the seating hole for the tibial rotational device was then made. Size 6 was used for this. 6 patient was then seated the knee flexed and extended well from 0 to 125 degrees patella tracked well. The patella was then resected leaving roughly 15 mm. A size 41 patella was then seated after the drill holes were made it tracked well. Ortho mix was then injected around the knee all trial elements were removed the knee was then soaked in Betadine for 3 minutes then Pulsavac then the permanent cemented in position tibia femur and patella in that order at 12 minutes the tourniquet deflated minor bleeding points controlled electrocautery at 14 minutes the knee was exposed and flexed there was no cement removal required the trial spacer was removed knee was then irrigated with Pulsavac soaked in Betadine and then the permanent liner seated the knee reduced and closed at 40 degrees of flexion using #2 Vicryl 2-0 Vicryl and standstill clips appropriate dressing was then applied the patient then was then transferred recovery in satisfactory condition having tolerated the procedure well. Summary of implants [employer] rotating platform ATT UNE system size 7 femur size 6 tibia size 7 spacer and matching the femur 6 mm thick oval Dome patella size 41 2 bags of Pal[place]os G cement. EBL 100 cc crystalloid per anesthesia DVT prophylaxis start tomorrow bone pathology pending. I attest to the content of the Intraoperative Record and any orders documented therein. Any exceptions are noted below.
--- NOTE | 2024-11-09 08:52 | Orthopedic Progress Note ---
Date of Service November 09, 2024 Orthopedic Progress Note Patient tolerated the left total knee replaced well. Denies chest pain shortness of breath fever chills nausea vomiting headache. Vital signs are stable she is afebrile. Neurovascular check femoral and sciatic nerve limited by spinal. Dressing clean dry and intact. X-ray pending. Family contacted.
--- NOTE | 2024-11-09 08:53 | Discharge Summary ---
Date of Service November 10, 2024 Admission HPI Per Admitting Provider Painful left knee significant varus deformity with flexion contracture more patellofemoral incarceration x-rays that revealed tricompartmental disease. Principal Diagnosis Osteoarthritis left knee Discharge Data Allergies Allergy/AdvReac Type Severity Reaction Status Date / Time adhesive Allergy Intermediate Skin Verified 11/09/24 05:52 redness with tape "years ago" No Known Drug Allergies Allergy Unknown NONE Verified 11/09/24 05:52 Vaccinations None Consultations None Procedures Performed Operation Date: 11/09/24 07:00 Actual Procedures p Left Total Knee Arthroplasty(Left) - Carlos A Gonsalves MD Ordered Studies 11/09/24 05:00 US - OR guided needle placemen Routine Hospital Course (1) Status post left knee replacement: Care plan for total knee replacement home services Plan Care plan for total knee replacement home services Total Time Total Time Spent Total Time Spent (In Minutes): 5 minutes Discharge Plan Discharge Items Reason For Visit: Left Knee Osteoarthritis Discharge Diagnosis: Status post left total knee replacement cemented Follow-up/Referrals: Lenny Reese MD [Primary Care Provider] - Addtl Attending Provider Instructions: New Medicine: * You will likely be taking one or more of these medications: 1. Percocet - Take, as directed, when you need it, every four to six hours to control your pain. 2. Iron Sulfate - Take 1x each day for the month after surgery to help you replace the blood lost during surgery. 3. Eliquis - Thins your blood to lessen the chance of forming a blood clot. * The most common side effects of pain medicine and iron are nausea and constipation. If nausea or constipation is too much of a problem or if you have any questions about your new medicines or doses, call [facility] at . We will try to help you manage these issues. "VERY IMPORTANT TO READ AND REVIEW" Blood Clots and Blood Thinning Medicine: * You are given Eliquis during the immediate post-operative period to lessen the risk of blood clots forming in your legs and/or lungs. It is usually given for 4 weeks after surgery. Pain: * The immediate post-operative period after knee replacement surgery is often quite painful. * You are given a prescription for pain medicine. You should take it, as directed, when you need it, especially before physical therapy and before going to bed. Pain that interferes with sleep is very common and can last several months. * You will likely need pain medicine for the first four to six weeks. It will not stop all of the pain. The pain will lessen and as you feel better, you may change to milder pain medicine such as Tylenol. * The most common side effects of pain medicine are nausea and constipation, so don't take more than you need. Physical Therapy: * You will have physical therapy two or three times each week for four to six weeks after your surgery in order to regain your knee range of motion and to retrain your knee to work properly. * It is just as important to make sure you are getting your knee perfectly straight as it is to regain your knee bend. * Taking a pain pill an hour before therapy can help you have a more productive and comfortable therapy session if needed. Home Exercise: * You were shown a series of exercises (heel props, heel slides, etc.) in the hospital. Do these exercises three to four times each day including the exercises you were shown in physical therapy. Walking: * Get up and walk several times each day. For the first four weeks, try not to stand or walk for more than one hour at a time. If you do stand or walk for more than one hour, you will not hurt anything, but your knee and leg will likely swell. * As you feel comfortable, you may change from the walker or crutches to a cane and then to independent walking. SELF CARE INSTRUCTIONS AFTER TOTAL KNEE REPLACEMENT A. You may need to continue a physical therapy program after discharge from the hospital. There are several options available to you. Your doctor will assist you in selecting the best one for you. 1. An out-patient facility 2 to 3 times a week for therapy or home therapy. 2. Continue working on all exercises taught to you in the hospital. Your goals should be to increase bending of your knee to 90 degrees and beyond and to fully straighten your knee. B. You may progress at your own pace from walking with a walker or crutches to a cane; then to no assistive devices. C. Make walking a part of your daily routine. Be up as much as comfortable with rest periods throughout the day. Rest with leg elevation is very important. Use the ice wrap frequently for the first 3-4 weeks. D. There are no restrictions on activities. You may ride in a car, shop, participate in secretary of police and all social activities. E. Wear the long elastic stockings (LANETTE hose) 20 hours a day for six weeks after surgery. They can be removed several times a day for laundering and for a shower. F. Do not place a pillow behind your knee when resting. A pillow at your ankle is okay. G. You may return to previous diet. VERY IMPORTANT TO READ AND REVIEW A. Take Eliquis (blood thinning medication) as directed by your doctor. B. There are a few signs you need to watch for after you are home. Call [facility] if you notice any of the followin. Increased severe knee pain. Some pain is expected especially when you exercise. 2. Increased swelling in your leg or knee; pain or swelling of the calf muscle in either lower leg. 3. Any fluid drainage from the incision. 4. Shortness of breath or chest pain. C. Please call [facility] at if you have any concerns or questions about your operation or recovery. The doctor or his nurse will return your call promptly. D. You must take antibiotics before dental work, bladder, bowel or other surgery. Call the office to obtain a prescription at least 2 days prior to your appointment. * CALL IF INCREASED PAIN, REDNESS, DRAINAGE OR FEVER GREATER THAT 101. * Sutures should be removed 12-14 days after surgery unless you are on chronic steroids, then it will be 14-18 days after surgery. Call your doctor if: * Temperature above 101 degrees F. * Pain not relieved by pain medicine ordered. * Increased drainage or redness from incision. * Notify your doctor with any questions or concerns. MEDICATIONS: * Please take your prescriptions as instructed at your pre-op appointment and/or see medication discharge instructions listed above. * If concerns develop, call your physician's office at . SPECIAL CARE INSTRUCTIONS: * Ice/Elevate as instructed. * Keep dressing clean, dry, intact. * Your surgical extremity may be discolored due to prepping agents used on the skin. A bluish-green tint is a normal variant and should not cause alarm. Call your doctor at [phone] if: * Temperature above 101 degrees * Pain not relieved by pain medicine ordered * There is increased drainage or redness from any incision * You have any unanswered questions, problems or concerns. FOLLOW UP VISIT: * If not already scheduled, please call the office at to schedule a follow-up appointment. Pending Studies at Discharge: Yes Studies:: Bone pathology Stand-Alone Forms: My [facility] Medications and DC Order Prescriptions: No Action hyoscyamine sulfate 0.125 mg tablet, sublingual 0.125 mg SL ONCE PRN (Reason: RECTAL SPASM) Qty: 30 0RF levothyroxine 100 mcg tablet 100 mcg PO QAM Qty: 90 3RF triamterene-hydrochlorothiazid 37.5-25 mg tablet 1 tab PO HS Qty: 90 3RF aspirin 81 mg tablet,chewable 81 mg PO HS metformin 500 mg tablet extended release 24 hr 1,000 mg PO BID Qty: 360 3RF vitamin B complex Tablet 1 tab PO QPM ascorbic acid (vitamin C) [Vitamin C] 1,000 mg Tablet 1 g PO Q6H Patient Comments: CHEWABLE cholecalciferol (vitamin D3) [Vitamin D3] 10 mcg (400 unit) Tablet 10 mcg PO DAILY docusate sodium [Stool Softener] 100 mg Capsule 100 mg PO DAILY Patient Comments: WHEN I THINK OF IT rosuvastatin 5 mg tablet 5 mg PO UD Rx Instructions: thu/thu/thursday, once daily, only Admission Data Admit Date/Time: 11/09/24 09:09 Attending Provider: Carlos A Gonsalves Admit Provider: Carlos A Gonsalves Primary Care Provider: Lenny Reese Other Providers: [facility]
--- NOTE | 2024-11-09 09:00 | Operative Report ---
Post Operative Report Pre & Post Diagnosis Operation Date: 11/09/24 07:00 Pre-Op Diagnosis: Left Knee Degenerative Joint Disease Post-Op Diagnosis: Left Knee Degenerative Joint Disease I identified the patient and participated in the time-out.: Yes Procedure Operation Date: 11/09/24 07:00 Actual Procedures p Left Total Knee Arthroplasty(Left) - Carlos A Gonsalves MD Surgeon Carlos A Gonsalves MD Dog Races Manager Félix/Julian Estimated Blood Loss 100 Findings Consistent with Post-Op Diagnosis Specimens Left knee bone pathology Description of Procedure Patient was brought to the operative suite where she underwent anesthesia. Left lower extremity was prepped and draped in usual sterile fashion. A surgical timeout was performed. The patient underwent a left total knee arthroplasty. Please see Dr. Gonsalves's operative report for full details. I was present and assisted with patient positioning, limb positioning, soft tissue retraction, hemostasis, hardware placement, wound closure, postoperative dressing placement. The patient was awakened and taken recovery room in stable condition. I attest to the content of the Intraoperative Record and any orders documented therein. Any exceptions are noted below.
--- NOTE | 2024-11-09 09:12 | XRay Report ---
XR knee LT 1 or 2V routine CLINICAL HISTORY: Postoperative evaluation. COMPARISON: Left knee radiographs June 13, 2024. FINDINGS: Alignment of the total left knee arthroplasty is anatomic. There is no periprosthetic frac ture or unexpected radiopaque foreign body. There are skin luis. IMPRESSION: Expected findings following total left knee arthroplasty. ACT 112: Negative or not required by law. Electronically signed by: Caden Meek M.D. 11/09/2024 9:11 AM
[2024-11-09] MEDS ORDERED: NALOXONE HCL 0.4 MG/1 ML VIAL/CARP IV PRN (10:13)
[2024-11-09] MEDS ORDERED: METOCLOPRAMIDE HCL INJ 5 MG/ML 2 ML VIAL IV PRN (10:13)
[2024-11-09] MEDS ORDERED: bisacodyL 10 MG SUPP PR PRN (10:13)
[2024-11-09] MEDS ORDERED: PHARMACY GLYCEMIC MGMT CONSULT PRN (10:13)
[2024-11-09] MEDS ORDERED: DOCUSATE SODIUM 100 MG CAP PO SCH (10:13)
[2024-11-09] MEDS ORDERED: ALUMINUM/MAGNESIUM SUSP 30 ML UDC PO PRN (10:13)
[2024-11-09] MEDS ORDERED: MAGNESIUM HYDROXIDE SUSP 30 ML UDC PO PRN (10:13)
[2024-11-09] MEDS ORDERED: VANCOMYCIN CONSULT ACTIVE PRN (10:13)
[2024-11-09] MEDS ORDERED: diphenhydrAMINE 50 MG/ML VIAL IV PRN (10:13)
[2024-11-09] MEDS ORDERED: HYOSCYAMINE SULFATE 0.125 MG TAB PO PRN (10:30)
[2024-11-09] MEDS ORDERED: DEXTROSE 50% 50 ML SYRINGE IV PRN (10:45)
[2024-11-09] MEDS ORDERED: GLUCOSE 40% GEL 15 GM TUBE PO PRN (10:45)
[2024-11-09] MEDS ORDERED: GLUCAGON FOR INJ 1 MG VIAL SQ PRN (10:45)
[2024-11-09] MEDS ORDERED: GLUCOSE 10 TAB/TUBE PO PRN (10:45)
[2024-11-09] MEDS ORDERED: CARBOHYDRATES FOR HYPOGLYCEMIA PO PRN (10:45)
--- NOTE | 2024-11-09 11:47 | Operative Report ---
Post Operative Report Pre & Post Diagnosis Operation Date: 11/09/24 07:00 Pre-Op Diagnosis: Left Knee Degenerative Joint Disease Post-Op Diagnosis: Left Knee Degenerative Joint Disease I identified the patient and participated in the time-out.: Yes Procedure Operation Date: 11/09/24 07:00 Actual Procedures p Left Total Knee Arthroplasty(Left) - Carlos A Gonsalves MD Surgeon TRINY Gonsalves MD Music Department Chair Félix/Julian UMANZOR Estimated Blood Loss 100 Findings Consistent with Post-Op Diagnosis see operative report Specimens see operative report Drains none Complications none Disposition Accompanied Patient To Recovery: Yes Indications This 74 year old female presented to the office with complaints of persisting left knee pain. She had tried conservative care measures without improvement. She elected to proceed with surgical invention after being educated about potential risks and outcomes. Preoperative imaging was obtained. Description of Procedure The patient was administered a spinal anesthetic and then taken to the operating room where she was given sedation. She was prepped and draped in the usual sterile fashion. Please see Dr. Gonsalves's operative report for specifics of the procedure. I was present for the entire case from initial patient positioning through final wound closure. Assistance was provided in tissue retraction, hemostasis, trial implant placement, final implant placement, and final wound closure. The patient was taken to the recovery room in satisfactory condition. I attest to the content of the Intraoperative Record and any orders documented therein. Any exceptions are noted below.
--- NOTE | 2024-11-09 11:49 | Orthopedic Progress Note ---
Date of Service November 09, 2024 Assessment & Plan Admission and Anticipated Discharge Date Admission Date: November 09, 2024 Orthopedic Progress Note Sitting up very comfortable. Denies chest pain shortness of breath fever chills nausea vomiting headache. Vital signs are stable she is afebrile. Neurovascular check femoral sciatic nerve is normal. Wound dressing clean dry and intact. Emphasized the need to do her exercises. She started her heel slides and straight leg raises. When she gets low bit more strength she could be weightbearing as tolerated left lower extremity with her walker. Knee immobilizer for 48 to 72 hours. Initiate DVT PE prophylaxis tomorrow. Saline lock IV fluid eating and drinking well. Case management involved. Postop x- rays look excellent.
[2024-11-09] MEDS: KETOROLAC TROMETHAMINE 15 MG/ML VIAL IV SCH (11:51)
[2024-11-09] MEDS: VANCOMYCIN HCL 1,750 MG in SODIUM CHLORIDE 0.9% 500 ML IV ONE (11:51)
[2024-11-09] MEDS: ROSUVASTATIN CALCIUM 5 MG TAB PO SCH (11:52)
[2024-11-09] MEDS: LEVOTHYROXINE SODIUM 100 MCG TABLET PO SCH (11:52)
[2024-11-09] MEDS: CHOLECALCIFEROL 10 MCG (400 UNITS) TAB PO SCH (11:52)
--- NOTE | 2024-11-09 11:52 | Pharmacy Report ---
Pharmacy Glycemic Short Note 2 - Date of Service November 09, 2024 - Glycemic Short BSG Results (Last 24 hours): 11/09/24 11/09/24 05:44 11:27 POC Glucose 127 H 99 OUTPATIENT ANTIDIABETIC REGIMEN: * metformin 1 g PO BIDM HbA1c: 6.2% (10/05/24) ASSESSMENT: * MARY is a 74 year old female POD #0 s/p left total knee arthroplasty * Patient with well-controlled T2DM on metformin only as an outpatient * No steroids perioperatively, but is ordered one-time dose of dexamethasone 10 mg IV on 11/10/24 * Preop blood glucose of 127 mg/dL and postop blood glucose of 99 mg/dL * Will be conservative w/ initial insulin regimen PLAN FOR INPATIENT GLYCEMIC CONTROL: * Hold outpatient oral diabetes medications * Basal insulin * hold * Bolus insulin * NovoLog per scale ACHS or Q6hrs while NPO * Goal Range: Low 120 mg/dL - High 150 mg/dL * Correction Factor: 35 mg/dL/unit * Nutritional / Prandial insulin per carb ratio of 1 unit per 15 grams CHO consumed
[2024-11-09] MEDS: INSULIN ASPART PER UNIT CHARGE SC SCH (12:08)
--- NOTE | 2024-11-09 12:26 | Anesthesiology Progress Note ---
Date of Service November 09, 2024 Anesthesia Post Procedure Vital Signs Vital Signs: Temp Pulse Pulse Resp BP BP Pulse Ox 11/09/24 12:05 36.6 C 64 18 137/76 100 11/09/24 11:07 60 18 129/77 100 11/09/24 10:35 36.4 C L 63 18 146/78 H 99 11/09/24 10:05 36.5 C 62 18 120/62 97 11/09/24 09:50 58 L 17 119/68 95 11/09/24 09:35 36.2 C L 64 15 135/61 98 11/09/24 09:25 65 15 123/65 97 11/09/24 09:15 58 L 15 123/59 L 100 11/09/24 09:05 61 15 131/65 100 11/09/24 08:59 36.0 C L 63 17 120/61 100 11/09/24 05:55 36.6 C 75 20 158/67 H 96 O2 Del Method O2 Flow Rate 11/09/24 12:05 Room Air 11/09/24 11:07 Room Air 11/09/24 10:35 Room Air 11/09/24 10:05 Room Air 11/09/24 09:50 Room Air 11/09/24 09:35 Room Air 11/09/24 09:25 Room Air 11/09/24 09:15 Oxymask 5 11/09/24 09:05 Oxymask 5 11/09/24 08:59 Oxymask 5 11/09/24 05:55 Room Air Transfer of Care Handoff Completed per policy Notes Mental Status: alert / awake / arousable and participated in evaluation Patient Amnestic to Procedure: Yes Nausea / Vomiting: adequately controlled Pain: adequately controlled Airway Patency, RR, SpO2: stable & adequate BP & HR: stable & adequate Hydration State: stable & adequate Anesthetic Complications: no major complications apparent
[2024-11-09] MEDS: ACETAMINOPHEN 500 MG TAB PO SCH (13:26)
[2024-11-09] MEDS: oxyCODONE HCL IR 5 MG TAB (IMMEDIATE RELEASE) PO PRN (13:26)
[2024-11-09] MEDS: HYDROmorphone INJ 0.5 MG/0.5 ML SYR IV PRN (15:04)
[2024-11-09] MEDS: FERROUS GLUCONATE 324 MG TAB PO SCH (17:02)
[2024-11-09] MEDS: ASCORBIC ACID 500 MG TAB PO SCH (17:02)
[2024-11-09] MEDS: TRIAMTERENE/HCTZ 37.5/25MG TAB PO SCH (20:55)
[2024-11-09] MEDS: SENNA 8.6 MG TAB PO SCH (20:55)
[2024-11-09] MEDS: DOCUSATE SODIUM 100 MG CAP PO SCH (20:55)
[2024-11-09 23:07] VITALS: O2SAT 96
[2024-11-10 03:30] VITALS: TEMP 98.1
[2024-11-10] MEDS: APIXABAN 2.5 MG TAB PO SCH (07:32)
[2024-11-10] MEDS: MULTIVITAMIN TAB PO SCH (07:32)
[2024-11-10] MEDS: dexAMETHasone 10 MG in SYRINGE 0 ML IV SCH (07:33)
[2024-11-10 08:00] VITALS: BP 146/71; PULSE 75; RESP 16
[2024-11-10 08:06] LABS: Hematocrit (blood only) 31.6 % (37.0-47.0); Hemoglobin 10.3 g/dl (12.0-16.0); Mean Corpuscular Hemoglobin 27.8 pg (25.0-34.0); Mean Corpuscular Hgb Conc 32.6 g/dL (32.0-36.0); Mean Corpuscular Volume 85.4 fL (80.0-100.0); Mean Platelet Volume 10.2 fL (9.4-12.4); Platelet Count 172 K/uL (130-400); RDW Coefficient of Variation 13.1 % (11.5-14.5); RDW Standard Deviation 40.3 fL (36.4-46.3); White Blood Count 6.05 K/ul (4.8-10.8)
--- NOTE | 2024-11-10 08:07 | Orthopedic Progress Note ---
Date of Service November 10, 2024 Postop day #1 doing well denies any chest pain shortness of breath fever chills nausea vomiting or headache. Vital signs are stable she is afebrile. Neurovascular check femoral sciatic nerve is normal. A.m. labs pending. Assessment doing well discharged home today after dressing change PT OT initiate anticoagulation today. Assessment & Plan Admission and Anticipated Discharge Date Admission Date: November 09, 2024
[2024-11-10 08:08] LABS: BUN Creatinine Ratio 34.9 (10-20); Calcium 9.1 mg/dl (8.6-10.3); Creatinine Clr Calc Pharmacy 79.8 ml/min; Potassium 3.9 mmol/L (3.5-5.1)
[2024-11-10] MEDS: LANTUS PER UNIT CHARGE SC ONE (08:18)
--- NOTE | 2024-11-10 09:30 | Orthopedic Progress Note ---
Date of Service November 10, 2024 Assessment & Plan (1) Status post left knee replacement: Plan: The patient was educated regarding today's findings. Her postsurgical dressings were changed today by me. LANETTE stocking was applied. She will leave these in place through the weekend. They can be changed on Thursday as needed for soiling. She can also leave them in place until she is seen in the office in 2 weeks if they are dry. Continue with ice and elevation frequently to reduce pain and swelling. Use the knee immobilizer today and tomorrow when out of bed. It can be discontinued entirely on Thursday morning prescriptions for Percocet and Eliquis were sent to her pharmacy. Mouth has been established and she is scheduled to have a therapy session on Thursday. Use the walker when ambulating. Call the office tomorrow if she will run out of pain medication before the weekend. Call with any other concerns. Admission and Anticipated Discharge Date Admission Date: November 09, 2024 Subjective This 74-year-old female is seen today in her room. She is 1 day status post left knee total knee arthroplasty. She states she is doing well. She has been up and about and walking around with her walker. She feels ready for discharge to home. She denies any chest pain, shortness of breath, nausea, vomiting, or abdominal pain. Her pain is currently controlled. No additional complaints. Review of Systems Review of Systems: Unchanged from yesterday. Physical Exam Physical Exam: General: Well-developed, well-nourished, elderly female, in no acute distress. Laying in bed. Alert and oriented. Skin: Warm and dry with good turgor. No rashes. Postsurgical dressing is in place on the left knee. Upon removal, she has a healing surgical incision. Alida are in place. Wound edges are well-approximated. No erythema or warmth. No drainage. There is scant dried blood on her innermost dressings. She has no active bleeding. Expected postoperative edema. No ecchymosis yet. Musculoskeletal: The patient has intact motor function of her ankle and toes. She does has full extension at this time. Flexion fairly easily to around 50 degrees. She is able to perform a straight leg raise. There is active quad tone. Neurologic: Gross sensation is intact across the left leg by soft touch. Peripheral pulses are 2+. Results & Data Vital Signs (Past 12 Hours) Vital Signs Temp Pulse Resp BP BP Pulse Ox O2 Del Method 11/10/24 07:57 36.7 C 75 16 146/71 H 96 Room Air 11/10/24 03:30 36.7 C 69 18 156/84 H 96 Room Air 11/09/24 23:06 36.8 C 84 18 124/67 96 Room Air Laboratory Results CBC obtained this morning shows a white count of 6.05. H&H of 10.3 and 31.6. Normal platelet count. PRP shows normal electrolytes. BUN of 29 with creatinine 0.83. Glucose this morning was 144.
== END 2024-11-10 10:55 | disposition home health service (06) ==
LOC: 3W 05:14 → ASU 05:14